=== PATIENT | female | born 1965 | race Caucasian/White ===

== ENCOUNTER 2018-03-19 00:24 | Outpatient (CLI) | payer BC, SELFPAY ==
--- NOTE | 2018-03-19 09:01 | DI.COMBO_ITS ---
SYMPTOM/DIAGNOSIS: 6 MO. F/U, F/U ABNL MAMMO, R92.8, DIAGNOSTIC LEFT MAMMOGRAM AND LEFT BREAST ULTRASOUND: Mammograms were interpreted according to the usual protocol including computer analysis with CAD system, tomosynthesis and C view imaging. Comparison is made with prior examinations. Breast density, Category C. The circumscribed nodule in the retroareolar region of the left breast appears stable. Left breast ultrasound was performed. The hypoechoic ovoid soft tissue mass is again seen and is unchanged in size. It lies at the 3 o'clock position of the left breast. IMPRESSION: No evidence for malignancy. Stable appearance of the left breast nodule. 6 month follow up left mammogram and left breast ultrasound are requested for re-evaluation. Patient will be due for a bilateral mammogram at that time. Category 3. The findings were discussed with the patient on the date of the examination. SA ASSESSMENT OF FINDINGS: Probably benign. Six month follow-up recommended. Category 3. Patient will receive a letter notifying them of these results. Bi-RADS category C. The breasts are heterogeneously dense, which may obscure small masses.
== END 2018-03-19 00:44 ==
PROVIDERS: PCP Family Medicine; Visit Provider Family Medicine
DX: N60.82 Other benign mammary dysplasias of left breast (principal); Z12.31 Encounter for screening mammogram for malignant neoplasm of breast; R92.8 Other abnormal and inconclusive findings on diagnostic imaging of breast
CPT/HCPCS: 76642; 77061; 77065; G0279

== ENCOUNTER 2018-04-30 06:12 | Day surgery (SDC) | payer BC, SELFPAY ==
[2018-04-30] VITALS (8 sets, daily range): BP systolic 113–129; BP diastolic 61–80; PULSE 71–81; RESP 14–18; TEMP 36.6–37.1; O2SAT 94–100
--- NOTE | 2018-04-30 06:30 | W.PM.DSUDISC ---
Discharge Plan Disposition Patient Disposition: HOME Condition: Good Discharge Details Reason For Visit: BILLIARY DYSKINESIA Attending Provider: Jeri Garcia Primary Care Provider: Cecy Rhodes Home Meds and New Rx's Prescriptions: New acetaminophen [Tylenol 8 Hour] 650 mg tablet extended release 650 mg PO Q8H PRN (Reason: fever or pain) Qty: 30 RF: 0 ibuprofen 600 mg tablet 600 mg PO QID PRN (Reason: fever or pain) Qty: 30 RF: 0 oxycodone 5 mg tablet 5 mg PO Q6H PRN (Reason: pain) Qty: 14 RF: 0 Continue multivitamin 1 EACH tablet 1 ea PO DAILY RF: 0 calcium carbonate-vitamin D3 [Caltrate with Vitamin D3] 1 EACH tablet 1 ea PO DAILY RF: 0 omega-3 fatty acids-fish oil [One-Per-Day [place]-3] 1 EACH capsule,delayed release(DR/EC) 1 cap PO DAILY RF: 0 calcipotriene-betamethasone [Taclonex] 60 GM suspension 10 - 20 ml Topical DAILY Qty: 300 RF: 12 triamcinolone acetonide 80 GM ointment 2 gm Topical BID Qty: 80 RF: 3 ketoconazole [Nizoral] 120 ML shampoo 1 julienne Topical DAILY PRNQty: 120 RF: 12 bupropion HCl [Wellbutrin XL] 150 mg tablet extended release 24 hr 150 mg PO QAM Qty: 90 RF: 5 citalopram [Celexa] 20 mg tablet 20 mg PO HS Qty: 90 RF: 5 estradiol [Vagifem] 10 mcg tablet 10 mcg VG 2X Week Qty: 25 RF: 5 naproxen sodium [Aleve] 220 MG capsule 220 mg PO PRN PRNRF: 0 Discharge Instructions Instructions: Laparoscopic Cholecystectomy (DC) Additional Instructions: Follow up: 05/15 at 9:30 Pain Medication: Ibuprofen 600 mg every 6 hours as needed Tylenol 650 mg every 6 hours as needed Oxycodon 5 mg every 6 hours as needed for severe pain Miralax or Colace for constipation Other: May shower tomorrow Do not soak the incisions for 1 week May use ice for bruising and swelling Activity: No lifting, pulling or pushing >20 lb x 2 weeks Diet: Low fat 1. Because there will be medication in your system for the next 24 hours, you may feel a little sleepy. Your coordination will be affected. Therefore: a. Do not drive or operate dangerous equipment for 24 hours. b. Do not drink alcohol beverages for 24 hours (not even beer). c. Plan to go home and rest for the day. 2. Generally the only restriction on your activity is no lifting, pulling or pushing more then 20 lb for 4 weeks. You may feel fatigued for 2-4 weeks. 3 After you arrive home you may have a light meal and return to a normal diet as you can tolerate it without feeling sick to your stomach. 4. After surgery, you may feel pain or discomfort. Take the medications as prescribed. 5. If there are any questions regarding the findings of your procedure, please feel free to contact your doctor. 6. If you are unable to contact your doctor with a problem, contact the hospital at [phone]. 7. Continue all your regular medications unless directed otherwise. 8. You are being prescribed a Narcotic pain medication. Narcotic pain medications have an addiction potential for everyone. It is important that you take the medication as prescribed There is a limit on how many tablets we can prescribed, this has been decided by the state Please keep the medications in a secure place and do not let anyone know you have them at home If you have medication left over please discard them by crushing them in a little water and mixing in used coffee grounds or cat litter and putting in the trash. I understand the above instructions and have no questions. Signature of Patient or Responsible Adult Escort Date/Time Name of Responsible Adult Escort Signature of Nurse Date/Time Stand Alone Forms: Skye Arteaga (DSU) Referrals: Jeri Garcia MD [ [facility] STAFF PHYSICIAN] - 05/15/18 9:30 am Activity:: No lifting >20 lb x 2 weeks Diet:: low fat x 2 weeks Discharge Orders Discharge Orders: Discharge Order (Routine); Ordered 04/30/18 Ordered By: Jeri Garcia DS: Diagnosis Discharge Diagnosis (1) S/P laparoscopic cholecystectomy: Status: Acute (2) Biliary dyskinesia: Status: Acute
[2018-04-30] MEDS: Lactated Ringers 1,000 ML 80 ML IV ×2 (06:55→08:43)
[2018-04-30] MEDS: AMPICILLIN/SULBACTAM 3 GM in Normal Saline 100 ML IVPB (07:25)
[2018-04-30] MEDS: Bupivacaine LIPOSOME/PF 133 MG/10 ML VIAL IJ (07:35)
--- NOTE | 2018-04-30 08:17 | GB_PTH ---
PATIENT: Monse Salazar LOC: [facility] U#:[id number] AGE/SX: 53/F ROOM: RE04/30/[address]: Jeri Garcia MD : 1965 BED: DIS: 04/30/2018 SPEC #: [id number] RECD: 04/30/18 12:40 STATUS: MIR REQ #: [id number] SUE: 04/30/18 08:[address]: Jeri Garcia DEPT: Surgical Specimen RECD BY: Shala Del Castillo ENTERED: 04/30/18 12:41 SP TYPE: GB OTHR DR: Cecy Rhodes MD, DC Tissues: 1 - GALLBLADDER Procedures: GROSS AND MICRO LEVEL 3 Comments: [id number]
[2018-04-30] MEDS: Lidocaine 1% Pres-Free 5 ML VIAL (08:29)
--- NOTE | 2018-04-30 09:33 | ROE_ITS ---
REPORT OF OPERATIVE PROCEDURE DATE OF PROCEDURE April 30, 2018 PREOPERATIVE DIAGNOSIS Biliary dyskinesia. POSTOPERATIVE DIAGNOSIS Biliary dyskinesia. PROCEDURE Laparoscopic cholecystectomy. ANESTHESIA General endotracheal anesthesia and a regional nerve block. ANESTHESIA PROVIDER Serjio Capellan C.R.N.A. SURGEON Sylvia Garcia M.D. PREPARATION SUPERVISOR [employer]ING JOSE JUAN Jama SPECIMEN Gallbladder. BLOOD LOSS Less than 50 cc COMPLICATIONS No immediate complications. INDICATIONS Ms. Salazar is a pleasant 53-year-old female, who has been having intermittent right upper quadrant pain . An ultrasound was normal, but a HIDA scan showed decreased ejection fraction. The risks, benefits a nd complications of the procedure were reviewed with her and she wished to proceed. No guarantees wer e given or implied. DESCRIPTION OF PROCEDURES After informed consent was obtained, the patient was taken to the Operating Room, placed in the supin e position. Monitors and SCDs were applied. The patient was then placed under general anesthesia an d intubated. She was then placed in the left decubitus position for the regional nerve block, which w as done by Anesthesia, please see separate report. Once that was done, the patient was placed back on to her back and a belt was placed over her lap. Her abdomen was then prepped and draped in a sterile surgical fashion. A time-out was done. The patient's name, date of , procedure, site and type, a llergies to medications, DVT prophylaxes and antibiotics given were all reviewed. Next, 1% lidocaine was injected just above the umbilicus. A small incision was made. Towel clamps wer e applied to the skin on either side of the incision. Using direct visualization, a 5-mm port was ken kaleb without difficulty. The abdomen was insufflated and the camera was placed. The mesentery and ledy l under the port was inspected. No injuries were identified. Three more ports were then placed, one i n the subxiphoid area and two in the right upper quadrant. The gallbladder was identified and grasped . The gallbladder was tented, it was pushed towards the right shoulder, allowing me to visualize the neck of the gallbladder. This was grasped and pulled towards the right, opening up the triangle Calot . [place] dissector was then used to dissect the cystic duct. This was dissected 360 degrees. Once d issected, I was able to see the liver behind it, I could clearly see the duct going into the gallblad marcio. Three clips were placed, one proximal and two distal. The cystic duct was cut. The cystic artery was then identified, running medial to the duct and this was dissected, again 360 degrees and then t hree clips were placed, on proximal and two distal, and the artery was cut. The gallbladder was then removed from the liver bed using cautery. Once removed, it was placed into an EndoCatch bag and pulle d through the 11-mm port site without difficulty. The port was placed back and the liver bed was insp ected. A little bit of bleeding was noted from the liver bed, this was cauterized. A Ray-Blake was then placed into the abdomen and the liver bed was blotted. No more bleeding was noted. The area was irri gated and the fluid was suctioned. The Ray-Blake was removed. More irrigation was done and the fluid wa s suctioned out. At the end, the irrigation fluid was clear. Once all the fluid was removed, 20 cc o f lidocaine were injected above the liver bed to help with postoperative shoulder pain. The two right upper quadrant ports and the 11-mm port were removed under direct visualization. No bleeding was not ed from the fascia. Lastly, the umbilical port was removed. The abdomen was deflated. Some bleeding was noted from the skin edges of the incisions and this was cauterized. The dermis was closed with #4 -0 Vicryl. The skin was cleaned and dried and Skin Affix was applied. The patient was woken up, extub ated and taken back to Recovery in stable condition. Sponge, instrument and needle counts were correct at the end of the case x2.
== END 2018-04-30 11:25 | disposition home or self-care (01) ==
PROVIDERS: PCP Family Medicine; Visit Provider Surgery
PROC: 0FT44ZZ Resection of Gallbladder, Percutaneous Endoscopic Approach (ICD-10-PCS; CPT 47562; principal; 2018-04-30 07:30)
DX: K81.1 Chronic cholecystitis (principal); G47.33 Obstructive sleep apnea (adult) (pediatric)
CPT/HCPCS: 47562; 76942; 88304; J0131; J0295; J1100; J1885; J2250; J2405; J3010

== ENCOUNTER 2018-09-01 17:09 | Outpatient (REF) | payer BC, SELFPAY ==
--- NOTE | 2018-09-01 16:00 | PAPFT_PTH ---
PATIENT: Monse Salazar LOC: N U#:[id number] AGE/SX: 53/F ROOM: RE09/01/[address]: Cecy Rhodes MD, DC : 1965 BED: DIS: 09/01/2018 SPEC #: [id number] RECD: 09/02/18 13:07 STATUS: MIR [place] #: [id number] SUE: 09/01/18 16:[address]: Cecy Rhodes DEPT: [facility] Cytology RECD BY: Shala Del Castillo Tissues: 1 - CX/ENDOCX FOR PAP SMEARS Procedures: PAP THIN PREP/UVM Screening HPV DNA PROBE Comments: [id number]
== END 2018-09-01 17:29 ==
LOC: LBN 17:09
PROVIDERS: PCP Family Medicine; Visit Provider Family Medicine
DX: Z12.4 Encounter for screening for malignant neoplasm of cervix (principal); Z11.51 Encounter for screening for human papillomavirus (HPV)
CPT/HCPCS: 88142; 87624

== ENCOUNTER 2018-09-23 00:36 | Outpatient (CLI) | payer BC, SELFPAY ==
--- NOTE | 2018-09-23 16:00 | DI.MAMMO_ITS ---
SYMPTOMS/DIAGNOSIS: SCREENING, Z12.31 MAMMOGRAMS: Mammograms were interpreted according to the usual protocol including computer analysis with CAD system, tomosynthesis and C view imaging. The breasts are heterogeneously dense. No dominant mass or clumped microcalcification is identified in either breast. Well-circumscribed nodular radiodensity in the central portion of the left breast on CC view is unchanged from previous examination of August 2017. No new mass or clumped microcalcification identified in either breast. CONCLUSION: No specific evidence of malignancy at this time. Routine screening examinations are suggested at yearly intervals in this age group according to the ACS/ACR guidelines. Category 1, breast density category C. SA ASSESSMENT OF FINDINGS: Negative. Category 1. Patient will receive a letter notifying them of these results. Bi-RADS category C. The breasts are heterogeneously dense, which may obscure small masses.
== END 2018-09-23 00:56 ==
PROVIDERS: PCP Family Medicine; Visit Provider Family Medicine
CPT/HCPCS: 77063; 77067

== ENCOUNTER 2018-09-29 12:12 | Outpatient (REF) | payer BC, SELFPAY ==
--- NOTE | 2018-09-29 11:20 | SKI_PTH ---
PATIENT: Monse Salazar LOC: N U#:[id number] AGE/SX: 53/F ROOM: RE09/29/[address]: Graciela Castanon MD : 1965 BED: DIS: 09/29/2018 SPEC #: [id number] RECD: 09/29/18 13:04 STATUS: MIR REMaty #: [id number] SUE: 09/29/18 11:[address]: Graciela Castanon DEPT: Surgical Specimen RECD BY: Shala Del Castillo ENTERED: 09/29/18 13:04 SP TYPE: SLOANE GONZALEZ DR: Cecy Rhodes MD, DC Tissues: 1 - SKIN BIOPSY(SHAVE/PUNCH) 2 - VULVA BIOPSY Procedures: GROSS AND MICRO LEVEL 4 SKIN LEVEL 4 Comments: [id number]
== END 2018-09-29 12:32 ==
LOC: LBN 12:12
PROVIDERS: PCP Family Medicine; Visit Provider Obstetrics & Gynecology
DX: N76.2 Acute vulvitis (principal); D23.72 Other benign neoplasm of skin of left lower limb, including hip
CPT/HCPCS: 88305; 88304

== ENCOUNTER 2021-01-23 01:50 | Outpatient (CLI) | payer BC, SELFPAY ==
--- NOTE | 2021-01-23 08:15 | DI.MAMMO_ITS ---
Exam(s) MAMMO SCREENING EXAM: MAMMO SCREENING CLINICAL HISTORY: screening, Z12.39 TECHNIQUE: Mammograms were interpreted according to the usual protocol including computer analysis w [employer] CAD system, tomosynthesis and C-view imaging. COMPARISON: 2014 through 2018 FINDINGS: The breasts are composed of heterogeneously dense fibroglandular densities, Breast Density category C . No suspicious masses or suspicious microcalcifications are seen. There is a stable circumscribed nod ule centrally in the left breast. No skin thickening or abnormal axillary lymph nodes are seen. There has been no significant change from prior exams. IMPRESSION: BI-RADS Cat 2 - Benign Findings Yearly screening mammography is recommended. Breast Density Category C, heterogeneously Dense. The mammogram demonstrates the patient's breast tissue is dense. Dense breast tissue is very common a nd is not abnormal but dense breast tissue can make it harder to find cancer on a mammogram. Also, de nse breast tissue may increase breast cancer risk. This information about the result of the mammogram report was provided to the patient to raise their awareness. Use this report when you speak with the patient about their risks for breast cancer, which includes their family history. At that time, you may recommend additional screening tests (Ultrasound or MRI) as they might be useful based on their r isk. A negative radiographic report should not delay biopsy if a dominant or clinically suspicious mass is present. Up to ten percent of cancers are not identified on mammography. A negative report may reinforce clinical impression. Adenosis and dense breasts may obscure an underlying neoplasm. False positive reports average 6 to 10%.
== END 2021-01-23 02:10 ==
PROVIDERS: PCP Family Medicine; Visit Provider Family Medicine
DX: Z12.31 Encounter for screening mammogram for malignant neoplasm of breast (principal)
CPT/HCPCS: 77063; 77067

== ENCOUNTER 2021-06-11 04:06 | Outpatient (CLI) | payer BC, SELFPAY ==
[2021-06-11 08:55] LABS: ALT 22 U/L (14-59); AST 14 U/L (15-37); Albumin 3.8 g/dL (3.4-5.0); Alkaline Phosphatase 80 U/L (46-116); Anion Gap 6.6 mmol/L (3-11); BUN 17 mg/dL (7-18); Bilirubin, Total 0.6 mg/dL (0.2-1.0); CO2 30.4 mmol/L (21.0-32.0); CREATININE 1.2 mg/dL (0.55-1.02); Calcium 8.8 mg/dL (8.5-10.1); Calculated LDL 199 mg/dL (<100); Chloride 103 mmol/L (98-107); Cholesterol 299 mg/dL (<200); Estimated GFR 46.14 (mL/min/1.73m2); Glucose 104 mg/dL (74-106); HDL Cholesterol 87 mg/dL (40-60); Potassium 4.2 mmol/L (3.5-5.1); Sodium 140 mmol/L (136-145); Triglyceride 65 mg/dL (<150)
== END 2021-06-11 04:07 | disposition home or self-care (01) ==
LOC: LBO 04:07
PROVIDERS: Family Medicine; PCP Family Medicine; Visit Provider Family Medicine
DX: I10 Essential (primary) hypertension (principal); Z13.6 Encounter for screening for cardiovascular disorders
CPT/HCPCS: 36415; 80053; 80061

== ENCOUNTER 2021-11-14 09:10 | Outpatient (CLI) | payer OTHER, SELFPAY ==
--- NOTE | 2021-11-14 08:15 | DI.RAD_ITS ---
Exam(s) XR KNEE RT 3V AP,LAT,JES EXAM: XR KNEE RT 3V AP,LAT,JES CLINICAL HISTORY: right knee pain TECHNIQUE: COMPARISON: No exams were available for comparison FINDINGS: Three views were obtained. There is a probable small knee joint effusion. Cartilaginous joint space s appear fairly well maintained except for perhaps slight narrowing of medial tibiofemoral cartilagin ous joint space. Minimal marginal osteophytes of the patella noted. No other significant bony abnor mality seen. IMPRESSION: Mild degenerative changes as described above. RADIATION DOSE DELIVERED: Total DLP
== END 2021-11-14 09:11 | disposition home or self-care (01) ==
LOC: DIORS 09:10
PROVIDERS: PCP Family Medicine; Referring Provider Family Medicine; Visit Provider Student in an Organized Health Care Education/Training Program
DX: M25.561 Pain in right knee (principal); M25.461 Effusion, right knee; M25.761 Osteophyte, right knee
CPT/HCPCS: 73562

== ENCOUNTER → 2021-12-10 02:41 | Outpatient (CLI) | payer OTHER, SELFPAY ==
--- NOTE | 2021-12-10 07:00 | DI.MRI_ITS ---
Exam(s) MR LOWER JOINT RT WO EXAM: MR LOWER JOINT RT WO CLINICAL HISTORY: R KNEE SKI INJURY,INTERNAL DERANGEMENT,M23.91 TECHNIQUE: Multiplanar multisequence MRI of the right knee was performed. COMPARISON: Plain films of 11/14/2021 were reviewed FINDINGS: EFFUSION: There is a moderate size joint effusion. There is also a Toro cyst in the popliteal fossa which measures approximately 3.5 cm length by 1.2 cm AP by 1.1 cm wide. Inferiorly it appears ruptu red with some fluid tracking down the medial gastrocnemius surface. There is also subcutaneous edema anterior to the knee without a distinct fluid collection. This is m ostly anterior to the patellar ligament (which is intact). MARROW:There is bone contusion in the medial tibial plateau and overlying medial condyle. No bone co ntusion in the lateral compartment nor in the fibular head and neck nor in the patella. There is a s mall degenerative subarticular cyst in the mid posterior aspect of the tibial plateau just anterior t o the tibial PCL insertion site. This measures 4 x 4 millimeters. There are no ominous osseous lesi ons. PATELLOFEMORAL COMPARTMENT: The quadriceps tendon is intact. The patellar ligament is intact. There is signal abnormality in the anterior Hoffa fat pad. There is significant thinning of the retropate llar cartilage over the medial facet; less so over the lateral facet.No intraosseous signal to sugges t recent patellar dislocation. CRUCIATE LIGAMENTS: The anterior cruciate ligament is intact.The posterior cruciate ligament is intac t. MEDIAL COMPARTMENT/MEDIAL MENISCUS: There is a tear of the inner aspect of the posterior horn of the medial meniscus at the level of the root. There is mild extrusion the meniscus but no gutter descent . The anterior horn of the medial meniscus appears intact.. There is some generalized thinning of cartilage over the medial condyle. There is a focal area of morris barticular signal abnormality over the anterior weight-bearing surface of the medial femoral condyle measuring 5 x 3 millimeters. There is no distinct formed osteochondral defect at this level. Margin al osteophytes noted off the inner and outer aspect of the medial femoral condyle. Also subarticular edema on both sides as described above-mild. No evidence of tibial plateau fracture. MEDIAL COLLATERAL LIGAMENT: Abnormal. There is fluid interposed between the deep and superficial lay ers of the MCL. This fluid measures 2 cm craniocaudal by 1.5 cm AP by 0 point 2 cm wide. LATERAL COMPARTMENT/LATERAL MENISCUS: There is no evidence of lateral meniscal tear.There are no dory dral defects, osteochondral defects, subarticular marrow edema, nor osteophytes evident. ILIOTIBIAL BAND: Intact LATERAL COLLATERAL LIGAMENT COMPLEX: The fibular collateral ligament is intact. The biceps femoris t endon is intact.Popliteus muscle and tendon are intact. IMPRESSION: 1. There is a tear in the posterior horn of the medial meniscus at the level of the root. There is m ild meniscal extrusion.. The anterior horn of the medial meniscus appears intact. Some degenerative cartilage changes noted over the medial femoral condyle, as described above. There is also an area of focal subarticular edema over the anterior weight-bearing surface but no formed osteochondral defe ct at this time. 2. There is abnormal fluid as described above interposed between the deep and superficial layers the medial collateral ligament, consistent with significant injury. However, there does not appear to be full-thickness tear of the MCL. The most superior aspect of the fluid collection at this level appe ars septated. 3. No significant lateral compartment findings. 4. There is significant thinning of the retropatellar cartilage over the medial facet. No osteochond ral defect at this level. 5. There is a moderate size joint effusion and Toro cyst as described above. The Toro's cyst appe ars ruptured as there is fluid tracking down the medial gastrocnemius. DATA REPOSITORY:
== END ==
PROVIDERS: PCP Family Medicine; Visit Provider Student in an Organized Health Care Education/Training Program
DX: M23.91 Unspecified internal derangement of right knee (principal); S83.241A Other tear of medial meniscus, current injury, right knee, initial encounter; M25.461 Effusion, right knee; M71.21 Synovial cyst of popliteal space [Baker], right knee; M94.8X6 Other specified disorders of cartilage, lower leg; M17.11 Unilateral primary osteoarthritis, right knee; R60.0 Localized edema; X58.XXXA Exposure to other specified factors, initial encounter
CPT/HCPCS: 73721

== ENCOUNTER 2022-01-02 01:08 | Outpatient (CLI) | payer BC, SELFPAY ==
--- OUTSIDE RECORDS SUMMARY | 2022-01-02 01:11 | XMS_ITS | Encounter Summary ---
:1965 [place] [address] Care Team Providers Name Role Phone Cecy Rhodes MD Primary Care Provider Reason for Visit Consultation (Routine) - Authorized Specialty Diagnoses / Procedures Referred By Contact Refer red To Contact Dermatology Diagnoses Neoplasm of uncertain behavior of skin Marcus Calzada MD [facility] Dermatology [address] [place] [address] [place] [address] Fax: Referral ID Status Reason Start Expiration Visits Visits Date Date Requested Authorized [id number] Authorized Consult, 04/30/2022 6 6 Test & Treat 1 [facility] PCP Updated and/or Approved Encounter Details Date Type Department Care Team Description 05/14/2021 Office Visit Dermatology at [facility] Beny Peace MD Neoplasm of [facility] unspecified behavior [address] of bone, soft tissue, [place] [address] HEATER and skin (Primary Dx) [phone] RD-DERMATOLOGY [place], [place] [address] Social History Tobacco Use Types Packs/Day Years Used Date Never Smoker Sex Assigned at Date Recorded Not on file documented as of this encounter Progress Notes Blane Peace MD - 05/14/2021 10:20 AM EST Images from the original note were not included. DEPARTMENT OF DERMATOLOGY Medical Dermatology Clinic Note Provider: Blane Peace MD Patient's preferred name Monse Preferred contact method for results [x]Phone []myD-H []Letter Detailed phone message OK? Yes Are there any other people with whom we may discuss your care? Chivo Salazar () Past Medical History Date, location, treatment Melanoma N Dysplastic nevi N SCC N BCC N AKs N UV Exposure & Protection Not discussed Other relevant past medical history Seborrheic dermatitis Family History Details Melanoma N NMSC Father with hx of NMSC requiring Mohs surgery Other relevant family history Eczema Social History Works as a teacher Pre-Procedure Questions Details Allergy to lidocaine, epinephrine, Dermabond, chlorhexidine, or adhesives N Bleeding disorder or blood thinners N Implanted devices (Pacemaker, defibrillator, deep brain stimulator, cochlear implant) N History of Present Illness: Monse Salazar is a 56 y.o. Patient is referred to the clinic at the request of Marcus Calzada for a spot on her right cheek, which has been present for approximately 1 year. It has doubled in size, and it sometimes bleeds. It is itchy. She has tried an OTC topical antibiotic, tea tree oil, and OTC hydrocortisone cream without improvement. Her PCP also treated it with cryotherapy in January 2021, but it did not resolve. She has no additional concerns at this time. Review of Systems: General: Feeling well. Skin: No other skin concerns. Medications: Reviewed in eD-H Allergies: Reviewed in eD-H Skin Examination: Focused skin examination of the face was normal with the exception of the findings below. Assessment/Plan #. Neoplasm of unspecified behavior of skin: DDX: SCC vs. Other - Approximately 5mm, scaly, red, heme-crusted papule on the right cheek with hairpin vessels appreciated on dermoscopy Procedure Shave Biopsy Discussed with patient diagnostic options, including the risks and benefits of observation, empiric treatment, and biopsy, including but not limited to recurrence, cosmesis (scar, dyspigmentation, scarspread,keloid), pain, keloid/hypertrophic scar, bleeding, infection. Patient verbally understands and elects biopsy. -Time Out Performed: Full Name, , and site(s) confirmed with patient -Site was prepped in sterile fashion with Alcohol. Anesthesia with 1% lidocaine + 1:100,0000 epinephrine. Lesion biopsied with shave technique using briana blade. -Hemostasis achieved with Drysol. <1ml blood loss. No complications. Specimen(s): Placed in formalin and sent to Pathology for histologic examination. Post-op care: Vaseline, Pressure Dressing Figure 1 Photo(s) taken and charted with patient's verbal consent. Other: ??? N/A RTC: Pending pathology []Note routed to workers compensation legal secretary []Recall placed in scheduling system []Appointment scheduled at checkout Reviewed and signed by: Blane Peace MD Dermatology [facility] Patient seen and evaluated with staff bolt labeler: Carin Cleary MD Department of Dermatology [facility] Carin Leroy MD - 05/14/2021 10:20 AM EST I directly supervised the resident during this office visit. The resident physician presented the history and physical exam to me. I then saw and examined this patient with the resident. We reviewed the history and pertinent details and I confirmed the physical exam findings. I agree with the details of the history and physical exam as documented in the resident physician's note. Carin Cleary MD Staff Physician [facility] Dermatology Blane Peace MD - 05/14/2021 10:20 AM EST Called patient to inform of biopsy result showing basal cell carcinoma. Patient informed that additional treatment is recommended. Treatment options discussed and patient elects Mohs surgery. Referred to Dr. Bean for Mohs surgery. documented in this encounter Plan of Treatment Not on filedocumented as of this encounter Procedures Procedure Name Priority Date/Time Associated Diagnosis Comme nts SPECIMEN TO Routine 05/14/2021 10:42 AM Neoplasm of Results for this PATHOLOGY EST unspecified behavior procedu re are in of bone, soft the results tissue, and skin section. SURGICAL PATHOLOGY Routine 05/14/2021 10:41 AM Re sults for this REPORT EST procedure are i n the results section. documented in this encounter Results Specimen to Pathology (05/14/2021 10:42 AM EST) Specimen Anatomical Collection Method Collection Time Receive d Time (Source) Location / / Volume Laterality AP Specimen 05/14/2021 10:42 05/14/2021 AM EST 10:42 AM EST Narrative [facility] - 05/14/2021 10:42 AM EST Specimen requisition ordered. ??Separate Pathology report to follow Carin Cleary MD PATHOLOGY/CYTOLOGY ORDERABLE S Performing Organization Address City/State/Z[place] [address] [facility] [address] Surgical Pathology Report (05/14/2021 10:41 AM EST) Component Value Ref Test Analysis Performed At [facility] Range Method Time Signature Surgical [id number] ? Location: [facility] Report The signing pathologist has (i) examined the relevant preparation(s) for the [facility] specimen(s) and (ii) rendered or confirmed the diagnosis(es) . [facility] . ?Surgic al Pathology DIAGNOSIS Right cheek, skin shave biopsy: - Surface of ??basal cell carcinoma with nodular features, t ransected Electronically signed by: ?Johnathon Leiva MD Verified: ??05/18/2021 11:01 ??Dermatopathologist Performed at: ??-[facility] Dept. of Pathology, [place], [place] SPECIMEN(S) SUBMITTED A - Right cheek, skin shave biopsy (1) CLINICAL INFORMATION 5 mm, scaly, he crusted papule on the right cheek X 1 year: SCC vs other SPECIMEN PROCESSING A - Labeled/Fixative: Right cheek, formalin. Quantity/Size: ??Single, 0.5 x 0.4 x 0.2 cm. Tissue Description: Granular, partly crusted pink-nelson papule . Sections/Processing: Inked, bisected and entirely submitted in 1 cassette labeled A1. ??pps Specimen (Source) Anatomical Collection Method Collection Time Re ceived Time Location / / Volume Laterality 05/14/2021 10:41 AM EST Blane Peace MD PATHOLOGY/CYTOLOGY ORDERABLE S Performing Organization Address City/State/ZIP [place] [address] documented in this encounter Visit Diagnoses Diagnosis Neoplasm of unspecified behavior of bone , soft tissue, and skin - Primary documented in this encounter Care Teams Workers Compensation Claims Examiner Relationship Specialty Start Date End Date Cecy Rhodes MD PCP - General Family Medicine 05/06/[address] [place] [address] documented as of this encounter
--- OUTSIDE RECORDS SUMMARY | 2022-01-02 01:11 | XMS_ITS | Encounter Summary ---
:1965 [place] [address] Care Team Providers Name Role Phone Cecy Rhodes MD Primary Care Provider Reason for Visit Reason Comments Skin Lesion Consultation (Routine) - Closed Specialty Diagnoses / Procedures Referred By Contact Refer red To Contact Dermatology Diagnoses seborrheic dermatitis Rika Deutsch, ARCHIVIST ECONOMIC HISTORY [facility] Dermatology [address] [place], [place] [address] [place] [address] Fax: Referral ID Status Reason Start Date Expiration Date Visits V isits Requested Authorized [id number] Closed Consult, 05/01/2016 05/01/2017 1 1 [facility] Encounter Details Date Type Department Care Team Description 05/06/2016 Office Visit Dermatology at [facility] Fransisco León MD AK (actinic keratosis); [facility] Intradermal nevus [address] [place] [address] [facility] [phone] RD-DERMATOLOGY [place], [place] [address] Social History Tobacco Use Types Packs/Day Years Used Date Never Smoker Sex Assigned at Date Recorded Not on file documented as of this encounter Patient Instructions Patient InstructionsWiKallie perez LPN - 05/06/2016 10:30 AM EST Actinic Keratoses You have been diagnosed today with Actinic Keratosis (AK). These dry, scaly patches are considered the earliest stage in the development of skin cancer. In rare cases, an AK can progress to skin cancer. Because of this risk, AKs are usually treated. You were treated today with Liquid Nitrogen. This is the most common treatment for AKs. Liquid nitrogen is extremely cold, and freezes the surface of the skin, causing the lesion to flake off. Treatment with liquid nitrogen can be uncomfortable, but discomfort should subside after a couple of hours. The area treated will look red and irritated, and it may blister up or turn dark, then fall off. This is normal! You do not need any special treatment for the area, but you may find cold compresses and/or a light application of Vaseline soothing. For best results, do not rub or pick at the healing lesion. Expected healing time is 3-4 weeks. Please contact the Dermatology clinic at [phone] if the lesion has not fully resolved after 6 weeks. documented in this encounter Progress Notes Juvenal León MD - 05/06/2016 10:30 AM EST DERMATOLOGY CONSULT NOTE Date of service: 05/06/2016 Monse Salazar : 1965 Provider: Juvenal León MD Chief Complaint Patient presents with ??? Skin Lesion The patient is seen at the request of Rika Deutsch, who instructed the patient to be seen for evaluation of above SKIN HX: History of psoriasis No skin cancer Blistering/severe sun moreno in the past Skyla tanning downing exposure HPI Monse Salazar is a 51 y.o. year old female, new to me and to dermatology. Patient presents to the clinic today for a lesion on the right wrist. She states that the lesion has been there since the beginning of March. She has treated it with OTC cortisone cream, triple antibiotic cream and antifungal cream with no improvement. She went to see her PCP who prescribed mupirocin, she used twice daily for 2 weeks with no improvement. She also has bumps on the lower face, they are asymptomatic and have been there for years, patientstates that they are unsightly and would like to know if they are worrisome and what are her options for removal. MEDS: Current Outpatient Prescriptions Medication Sig Dispense Refill ??? citalopram (CELEXA) 20 mg Tablet Take 20 mg by mouth daily. ??? buPROPion (WELLBUTRIN SR OR ZYBAN) 150 mg Tablet Sustained Release Take 150 mg by mouth 2 times daily. No current facility-administered medications for this visit. ADR: Codeine phosphate ROS General: feeling well Skin: denies other skin complaints MEDICAL HISTORY: There is no problem list on file for this patient. FAMILY HISTORY: Father had squamous cell carcinoma, currently being treated No history of any other skin diseases SOCIAL HISTORY/OCCUPATION: Occupation: teacher middle school Sunscreen: Yes, SPF: 30 EXAM General: NAD, pleasant, cooperative Skin: An examination of the right wrist and face was preformed today. Significant skin findings: A. 2mm hyperkeratotic papule with an inflamed base on the right dorsal wrist B. Left lower cutaneous lip, right chin, right submental: 5mm dome shaped skin colored papules ASSESSMENT/PLAN: A. Actinic keratosis (favored) vs. Inflamed hair follicle - If symptoms do not improve a biopsy may be warranted in the future; she will call if this occurs - Procedure Note: Procedure: Destruction of lesion with cryotherapy. Number: 1 Location: as above Discussed procedure and expectations including risks (including risk of hypopigmentation) and benefits. Verbal consent obtained. Frozen with LN2, 15-30 second thaw time, TWICE. There were no complications; the patient tolerated the procedure well. Post-procedure expectations and wound care were reviewed. B. Intradermal Nevi vs. Angio fibromas - Etiology discussed - Advised the patient to RTC if she notices any changes in shape, size or color - Discussed with patient that treatment/removal would be considered cosmetic, therefore insurance would not cover it and patient would be expected to pay out of pocket, in full, at time of service. - No treatment warranted at this time Follow up: PRN I am documenting this encounter acting as the scribe for and in the presence of Dr. León: KALLIE CUNNINGHAM LPN and Helene Dean Scribe I performed the above scribed service and agree with the accuracy of the documentation in this encounter. Juvenal León MD Speaking Unit Assembler of Dermatology, Department of Surgery [facility] cc: Cecy Rhodes MD documented in this encounter Plan of Treatment Not on filedocumented as of this encounter Visit Diagnoses Diagnosis AK (actinic keratosis) Actinic keratosis Intradermal nevus Benign neoplasm of skin, site unspecifie d documented in this encounter Care Teams Water Treatment Plant Engineer Relationship Specialty Start Date End Date Cecy Rhodes MD PCP - General Family Medicine 05/06/16 [facility] [address] [place] [address] documented as of this encounter
--- OUTSIDE RECORDS SUMMARY | 2022-01-02 01:11 | XMS_ITS | Encounter Summary ---
:1965 Author Organization [facility] [place] [address] Care Team Providers Name Role Phone Cecy Rhodes MD Primary Care Provider Encounter Details Date Type Department Care Team Description [facility]/07[facility] benign [facility]; Maryam PLUNKETT Seborrheic keratosis; [address] [facility] Lentigines; [place] [address] [address] History of basal cell carcinoma (BCC) [phone] [facility]-DERMATOLOGY [place], [place] [address] Social History Tobacco Use Types Packs/Day Years Used Date Never Smoker Sex Assigned at Date Recorded Not on file documented as of this encounter Progress Notes Adam Rogers MD - 08/07/2021 2:00 PM EST Images from the original note were not included. DEPARTMENT OF DERMATOLOGY Medical Dermatology Clinic Provider: Adam Rogers MD Patient's preferred name Monse Preferred contact method for results [x]?Phone []?myD-H []?Letter Detailed phone message OK? Yes Are there any other people with whom we may discuss your care? Chivo Salazar () ?? Past Medical History Date, location, treatment Melanoma N Dysplastic nevi N SCC N BCC Right cheek, BCC, s/p Mohs Jul 2021 AKs N UV Exposure & Protection Not discussed Other relevant past medical history Seborrheic dermatitis Family History Details Melanoma N NMSC Father with hx of NMSC requiring Mohs surgery Other relevant family history Eczema Social History Works as a teacher ?? Pre-Procedure Questions Details Allergy to lidocaine, epinephrine, Dermabond, chlorhexidine, or adhesives N Bleeding disorder or blood thinners N Implanted devices (Pacemaker, defibrillator, deep brain stimulator, cochlear implant) N History of Present Illness: Monse Salazar is a 56 y.o. Patient returns to clinic today for a full skin exam. - No specific lesions that are concerning. No spots that are changing colors, itching, or bleeding. Last visit at Dermatology: 05/14/2021 Last visit with this provider: Visit date not found Medications: Reviewed in eD-H Allergies: Reviewed in eD-H Skin Examination: Full skin examination: Patient asked to undress to their comfort level. Verbalized that the provider's preference is that patient remove all clothing and that the provider will not examine areas patient elects to keep covered. Examination of the scalp, hair, head, face, ears, neck, chest, axillae, abdomen, back, buttocks, genitalia, and upper and lower extremities was normal with the exception of thefindings below. Assessment/Plan Benign nevi - Scattered medium brown macules and papules on the trunk and extremities with reassuring pigment pattern on dermoscopy. - Reassured of benign appearance on exam today. - Reviewed ABCDEs of melanoma and sun protection Seborrheic keratoses - stuck on brown/garcia waxy papules on the trunk and extremities. - Reassured of the benign nature of these lesions. No treatment needed. Solar lentigines - 0.3-0.6cm light-brown evenly pigmented, well-demarcated macules in a photo distributed pattern on the face, trunk and extremities. - Reassured History of BCC - sutures on the right cheek not examined due to bandage from Mohs procedure. - Reviewed importance of sun protection (hats/shade/clothing) and sunscreen recommendations (SPF30, UVA/UVB broad spectrum coverage, reapply every 2 hrs if still outside). - Discussed warning signs of skin cancer, ABCDEs of melanoma. - Recommend daily face lotion spf 15-30 (Cerave AM, Aveeno, Cotz) - Handout provided. Other: ??? Sun protection discussed (protective clothing and SPF30+ broad-spectrum sunscreen) RTC: 12 months for FSE [x]Note routed to personal secretary []Recall placed in scheduling system []Appointment scheduled at checkout Scribe attestation: MERE Dill has performed the documentation for this encounter in the presence of and acting as a scribe for Adam Rogers MD. I performed the above scribed service and agree with the accuracy of the documentation in this encounter. Reviewed and signed by: Adam Rogers MD Dermatology [facility] Patient seen and evaluated with staff finding fastener: Jaida Duong MD Department of Dermatology [facility] Jaida Duong MD - 08/07/2021 2:00 PM EST I directly supervised Dr. Rogers during this office visit. Dr. Rogers presented the history and physical exam to me. I, then, saw and examined this patient with Dr. Rogers . We reviewed the history and pertinent details and I confirmed the physical findings. I agree with the details of the history and physical exam as documented in Dr. Rogers's note. JAIDA DUONG MD Staff Physician documented in this encounter Plan of Treatment Not on filedocumented as of this encounter Visit Diagnoses Diagnosis Multiple benign nevi Benign neoplasm of skin, site unspecifie d Seborrheic keratosis Other seborrheic keratosis Lentigines Other dyschromia History of basal cell carcinoma (BCC) documented in this encounter Care Teams Mat Man Relationship Specialty Start Date End Date Cecy Rhodes MD PCP - General Family Medicine 05/06/[address] [place] [address] [address] [place] [address] documented as of this encounter
--- OUTSIDE RECORDS SUMMARY | 2022-01-02 01:11 | XMS_ITS | Encounter Summary ---
:1965 Author Organization [facility] [place] [address] Care Team Providers Name Role Phone Cecy Rhodes MD Primary Care Provider Reason for Visit Consultation (Routine) - Closed Specialty Diagnoses / Procedures Referred By Contact Refer red To Contact Dermatology Diagnoses Basal cell carcinoma (BCC), unspecified site Blane Peace MD Leboeuf, Matthew R, MD [facility] [place] [address] [place] [address] Fax: Referral ID Status Reason Start Date Expiration Date Visits V isits Requested Authorized [id number] Closed Consult, 05/18/2021 05/18/2022 1 1 Test & Treat Encounter Details Date Type Department Care Team Description 08/07/2021 Procedure visit Dermatology at [facility] Basal cell carcinoma Maryam Chaudhari MD of right cheek [address] [facility] [id number] ANSHU [phone] [facility] [place], [place] [address] Social History Tobacco Use Types Packs/Day Years Used Date Never Smoker Sex Assigned at Date Recorded Not on file documented as of this encounter Last Filed Vital Signs Vital Sign Reading Time Taken Comments Blood Pressure 147/73 08/07/2021 12:57 PM EST Pulse 76 08/07/2021 12:57 PM EST Temperature - - Respiratory Rate - - Oxygen Saturation - - Inhaled Oxygen Concentration - - Weight - - Height - - Body Mass Index - - documented in this encounter Patient Instructions Patient InstructionsCoccIsela silva RN - 08/07/2021 9:27 AM EST Your staff Mohs surgeon today was Jonathan Bean MD, PhD. FLAP CLOSURE Your wound(s) was repaired by a flap closure. A flap closure is rearrangement of skin tissue. A flapis performed when the area has too much tension, or when a simple side to side closure cannot be performed, or when a flap would lead to better cosmetic outcome with a flap. Your flap may be closed with all absorbable sutures, sutures that need to be removed or a combination of both. You will be instructed upon discharge if a suture removal appointment is necessary. Caring for a flap is very similar to caring for regular side to side stitches, except more caution should be used when cleaning the incisions as some flaps can be delicate. Instructions for wound care are below. Please keep in mind these are general guidelines. When in doubt, or if you have more specific questions, please call us. Keep below as a reference while caring for your wound(s): Wound Care Gently remove your initial bandage (after 48 hours from surgery). It is normal to have swelling and bruising. Begin wound care as below. If your initial bandage only stayed on for 24 hours (for example, falls off sooner), this is okay. Resume your wound care and bandaging instructions as below. Change your bandage once a day (and whenever it becomes wet or soaks through) continue for 7 days. For bandage changes: Wash hands with soap and water, or use gloves that you can purchase at a local pharmacy or drug store. Clean the surgical area with cotton-tipped swabs or soft gauze dipped in soapy water (recommend liquid soap in clean room temperature water). Roll the cotton swab over the incision with soapy water, then with plain water, and then gently pat dry. Do not scrub the area with a washcloth. Do not put direct shower water pressure onto your wound. Do not pick off any scabs. It is okay to allow soapy water to run over your wound in the shower, however. If you cannot remove any bloody or crusted areas, you may soak the area with wet gauze first for 15 to 20 minutes to help soften it Pat the area dry with clean gauze or cotton swabs. Do not rub. Use a cotton swab to apply a generous layer of petrolatum over the incision lines and any open-woundareas. Make sure your tube or jar of petrolatum is new or unused to prevent prior contamination from entering your wound. Avoid double dipping. After applying petrolatum, use a clean nonstick gauze or other nonstick dressing, such as Telfa. This may be purchased over the counter at a drug store. Do not use regular gauze as it will stick to your wound and can peel off healing skin with bandage changes. Secure the bandage with paper tape or a bandage. Band-aids are okay, but typically have more adhesive that can irritate the skin compared to paper tape. This can be purchased at a drug store. Continue this wound care daily for 7 days. If any areas of the flap were left open to heal, continueto apply Vaseline until healed. Keep in mind that if you do not want to use a bandage at all due to difficulty, irritation of skin, cost, or inconvenience --- you can certainly avoid bandages altogether. However, it is imperative that you continue with topical petrolatum (plain, fragrance-free). This may need to be applied several times daily if it gets wiped off, washed off, or dries out. Things to purchase for wound care: -Nonstick gauze -A tube or tub of petrolatum jelly (fragrance-free, no dye, not lotion) -paper tape -cotton swabs -gloves (optional) -Dial or other antibacterial liquid soap After Surgery Avoid tobacco, smoking/vapors, and cannabis (marijuana) for at least 3 weeks after your surgery. Smoking impairs healing and leads to worse scarring. Even cutting back on tobacco is helpful if you cannot abstain completely. Limit alcohol intake to one drink per day over the next 3 days. Do not participate in athletic activities for 5-7 days. Athletic activity is a relative term, but this is considered to be anything that could potentially raise your heartrate or blood pressure. Elevating your heart rate and blood pressure can increase risks of swelling, bleeding, wound opening, or lead to worse scarring. Walking at a leisurely pace is fine for most people, but not if you are going walking for the purpose of exercise. Do not lift anything heavier than 10 pounds until your sutures are removed. Some chandelier maker may need to be delayed or delegated such as vacuuming, mowing the lawn, snow shoveling, or caring for young children that need to be carried/lifted. Working any major muscle groups increases your heart rate and can increasing bleeding. Avoid swimming, hot tubs, and direct water pressure for 3 weeks after surgery. You may shower once your initial bandage comes off in 48 hours, however. Avoid antibiotic ointments such as triple antibiotic creams. Stick with your wound care instructions, please. Whenever possible, it is helpful to take photographs with your camera or cell phone of any problems or concerns you see with your wound. We often ask for photos when you call with questions. Starting 2 months following surgery, you can begin firm massage to any areas of firm scar along yourincision to soften the scar and reduce bumpiness. Do this 3 times per day, 3 minutes each time. Do not start massage before 2 months. Your wound will appear completely healed soon after sutures are removed (about 1 week), but incisions can remain bright red for several weeks. Then the scarring and healing process continues under the skin for 6 months up to 2 years. The scar may become less red, less firm, and more subtle during thistime but the rate of improvement varies depending on the person. Most redness, discoloration, bumpiness resolves by 6 months. Keep your follow-up appointments and make sure to continue to have your skin checked, as often as isrecommended by your bone drier operator, for new skin cancers. This is once per year for most patients. Your can expect your scar to be red for several weeks with gradual fading of the redness. The scar will also be raised and lumpy until the dissolvable sutures under the skin get absorbed by your body which can take 3-4 months. The scar will flatten eventually. Occasionally, about 20% of the time, on the face, the stitches under the skin can spit out of the incision to the surface. It can start out looking like a pimple or blemish directly on your incision.Sometimes it can look like a small mini infection so please let us know before you go to another provider for antibiotics. This means that the suture may need to be trimmed or removed when you returnfor your wound check. This typically occurs a few weeks after surgery if it does occur. To optimize your scar, and best cosmetic result, please avoid direct sunlight to your incision for the first 6 months following surgery. UV ray exposure to your incision may cause the redness to last longer, or to cause permanent darkening of your scar. You can avoid sun by covering your incision witha bandage when outdoors, or wearing SPF 30 to 50 sunscreen (broad spectrum). Sometimes after your sutures are removed, your incision may still be healing for 1 more week. Because of this, avoid make-up and sunscreen until approximately 2 weeks after surgery, or sooner if your skin edges look completely sealed. Flaps may sometimes thicken or become firm several weeks after surgery. This is expected in some types of flaps and in certain locations on the face. This is called hypertrophy. If this occurs, at yourwound check, you may need small amounts of medicine injected into your flap to help it soften or thin. This will be determined at your follow-up visit. Flaps and skin surgery in general can lead to mild sensation loss (numbness) in the area of surgery.Massage starting at 8 weeks after surgery can help. Bruising. It is very common to have bruising in swelling in any area of the face, even in areas thatare distant from where we did surgery. This is especially common 24 to 48 hours after surgery when fluid and swelling shifts around in the face. For example, surgery on the forehead, temples, or cheeks often leads to eyelid swelling of both eyes, black eyes, or dark purple bruising. This is expectedin most patients and will gradually resolve. However, if you have severe pain not resolving with over the counter medicine, please call us. You can use ice packs or a bag of frozen peas for 15-20 minutes 3-4 times daily to areas of swelling on the face; use caution not to put the icy item directly on your incision, directly onto your skin as this can damage skin, and avoid prolonged use more than 20 minutes. [address] best way to use ice packs is over the bandage, or a light cloth/paper towel between the ice pack and your skin. You can ice for as many days as needed until swelling has resolved. Antibiotics: If you were given antibiotic prescription, it is important to start them the evening of your surgerydate. Most patients do not need antibiotics after surgery. For pain: Most patients of different ages do not require pain medications. If you do feel soreness or pain, start by taking over the counter extra strength acetaminophen (up to 3000 mg in a 24 hour period). Generally, we like you to avoid NSAIDS (non-steroid anti-inflammatory drugs such as ibuprofen) for the first 48 hours after surgery as this can increase risk of bleeding. However, if acetaminophen is not helping with pain, you can alternate acetaminophen with iburpofen (ibuprofen 400 mg every 4 hours.) Icepacks over your bandage without getting your bandage wet can also help with pain and swelling, for up to 20 minutes at a time (20 minutes off between icing sessions). Frozen peas work well as ice packs. THIS IS AN EXAMPLE OF A PAIN TREATMENT SCHEDULE: 1) You can take 500 mg acetaminophen one tablet by mouth at 6:00pm. This is over the counter. 2) You can take 400 mg of ibuprofen two hours later, at 8:00 pm, or other NSAID such as naproxen, aslong as it does not interact with your other medications and your other doctors have not told you toavoid this. This is over the counter. Check to see how many milligrams (mg) each of your ibuprofen tablets are. Most of the time, ibuprofen comes in 200 mg tablets, so 400 mg would mean taking two of these tablets or capsules. 3) You can take 500 mg of acetaminophen at 10:00 pm. Keep track of your total acetaminophen in a 24 hour period as your maximum should be 3000 mg total in a 24 hour period of this medication. 4) At midnight, you can take another 400 mg of ibuprofen. 5) you can continue on this schedule over the next 2 days, making sure to keep tabs of your total acetaminophen. If you are still in pain after trying the above, please call us. When to call your surgeon: Fever of 100.4 degrees Fahrenheit or higher Bleeding not controlled with direct firm pressure to your wound. Bleeding is most common in the first 48 hours. Pain that is worsening and not relieved by over the counter medications such as acetaminophen (up xw7680 mg in a 24 hour period) Wound reopening after stitching Pus or bad odor from your wound Worsening redness and warmth around your wound If you think your surgery site is infected, please call us before seeking care or antibiotics from other providers Please call us before seeking care in an emergency room or primary care. If you do call, please leave your full name, phone number, date of , date of surgery, and medical record number if you have it. If after hours, please call the paper wrapping machine operator or [phone] and ask for the bone drier operator on-call. If you have any non-urgent questions or concerns, please feel free to call my office or contact me through our patient portal, [employer], at [email or web address] How to contact us during business hours Dermatology at [facility] [address]: Mohs scheduling or Mohs follow-up appointments: [phone] documented in this encounter Progress Notes Jonathan Bean MD - 08/07/2021 8:00 AM EST Images from the original note were not included. Summary of Procedure(s): Site: right cheek Tumor Type: Basal Cell Carcinoma, right cheek Stages to clear tumor: 2 Repair: advancement flap Images: The patient was asked to call with any issues and is aware that I am available 06/01 should questionsarise. Jonathan Bean MD PhD Mohs Micrographic Surgery and Dermatologic Oncology Department of Dermatology Please note that I have reviewed the preoperative checklist from today's nursing visit including relevant social history and medications. I have reviewed the preoperative photos if available and the biopsy report. VITAL SIGNS: BP 147/73 Pulse 76 PHYSICAL EXAMINATION: General: patient is awake, alert, oriented and in no acute distress. Skin: Focused examination of surgical site(s) performed which shows a well healed biopsy site with surrounding poorly defined pearly plaque. PHYSICIAN REVIEW OF REPORTS, RECORDS, IMAGES: 1) The accompanying pathology report(s) associated with aforementioned biopsy slide(s) were/was alsoreviewed. Assessment: Monse Salazar is a 56 y.o. female presenting for: 1. Biopsy-proven basal cell carcinoma, nodular located on the right cheek. Plan: 1. Findings from the biopsy report, today's clinical exam, and other pertinent details were reviewedwith patient today. All questions were answered. 2. Discussed treatment options based on the above findings. We recommended Mohs micrographic surgeryfor treatment of this tumor. Mohs micrographic surgery was indicated due to patient, site and/or tumor characteristics (see operative report for specific indication). 3. We discussed risks, benefits, and alternative treatment options to the Mohs micrographic surgery procedure and pertinent information including but not limited to the following: ?? Risks include bleeding, infection, scar, recurrence, incomplete tumor removal or inability to cure with surgery alone if the tumor features are more aggressive than the initial pathology indicates. Occasionally, additional adjuvant treatments may be recommended. Additional risks include large wound, prolonged wound and healing, pain, swelling, bruising, increased appearance of vessels or worseningerythema of baseline skin; more rarely risks include damage to underlying structures such as nerves,cartilage, or muscle which could lead to temporary or permanent loss of sensation or motor function. ?? Benefit is precise tumor removal ?? If reconstruction is performed, it is specific to the patient and defect. ?? Discussed that the shape, size, depth of the wound is often not known until the tumor is cleared and thus the reconstruction options are sometimes not known until after tumor clearance. Occasionally, referrals to other providers may be recommended for reconstruction based on patient preference and need. ?? Reviewed the pros and cons of common reconstructions used for this tumor type, size, and location, and that reconstruction may lead to change in appearance. ?? Natural history of scar was discussed, including that the scar will continue to mature for 1-2 years. Recommended avoidance of special ointments or scar creams, and avoidance of direct sun exposure to the scar for optimal recovery. ?? Reviewed that there are some aspects of cosmesis that are dependent on patient's characteristics such as age, skin laxity/texture factors, inflammatory skin diseases such as rosacea, prior surgery/radiation, degree of actinic damage, smoking status, strength of the patient's immune system, diligentwound care, medications, and genetics. ?? Having Mohs surgery may lead to physical limitations for optimal healing, such as restricted physical activity and heavy lifting. 4. The nature of sun-induced photo-aging and skin cancers was discussed. Recommended sun avoidance when possible, especially peak hours of sun 10 am to 2pm, protective clothing such as wide-brimmed hats and long-sleeved clothing, and the use of SPF broad-spectrum sunscreen SPF 50 or higher. 5. Signs and symptoms of skin cancer reviewed. Patient to report any new, changing, or symptomatic lesions and follow up with his or her bone drier operator or other skin provider. 6. Discussed avoiding direct sun exposure to scars for best cosmetic result. Note initiated by NORA Schulz RN has performed the documentation for this encounter in the presence of and acting as a scribe for Dr. Bean I performed the above scribed service and agree with the accuracy of the documentation in this encounter. Reviewed and signed by: Jonathan Bean [facility]at[facility] Jonathan Bean MD - 08/07/2021 8:00 AM EST Mohs micrographic Surgery Operative Report Patient name: Monse Salazar : 1965 Date: 08/07/2021 Staff Surgeon: Jonathan Bean MD PhD Nursing/Client Integration Manager(s): Isela Canales RN, Maday Howard [facility], Naheed Davis LPN, Wil [facility] Software Engineer Advisor (s): Ciera Santoyo Pre-operative diagnosis: Basal Cell Carcinoma, nodular Post-operative diagnosis: basal cell carcinoma, nodular and infiltrative Location/Site: right cheek Procedure: Mohs micrographic surgery Indication(s) for Mohs micrographic surgery: Anatomic location for tissue conservation Stages: 2 Preoperative size of tumor: 0.8 x 0.8 cm Stage I The nature and purpose of the procedure, associated risks, possible consequences and complications,and alternative forms of treatment were explained in detail. We reviewed the possible repairs based on the clinical appearance of tumor but discussed that often the repair options may not be known until the tumor has deonna extirpated. Informed consent and permission to take photographs were obtained. The site was confirmed with the patient/authorized in home sales representative/referring physician and/or a photograph form time of biopsy. A pre-operative time-out (procedural pause) was conducted with no unresolved d iscrepancies noted. Local anesthesia was obtained with 1% lidocaine with 1:100,000 epinephrine. The surgical site was prepped and draped in the usual sterile manner. With all visible gross tumor completely excised, the borders of the tumor and 2-3 mm margins were excised as a complete layer. Hemostasis was achieved by electrocoagulation. The excised tissue was oriented and divided into 2 sections, chromacoded, and submitted for frozen sections. The patient tolerated the procedure well and without complications. On microscopic evaluation of the frozen sections, residual tumor was identified as infiltrative basal cell carcinoma on section A1 and A2. Stage II The surgical site was re-anesthetized with 1% lidocaine with 1:100,000 epinephrine, re-prepped and redraped in a sterile manner. The residual tumor was re-excised as a complete layer 2-3mm in thickness using the Mohs map to delineate area of residual tumor. Hemostasis was achieved with electrocoagulat ion. The tissue was oriented and divided into 2 sections, chromacoded, and submitted for frozen sections. The patient tolerated the procedure well and without complications. On microscopic evaluation of the frozen sections, no residual tumor was identified on the deep or outer border of the sections. Depth of excision subcutaneous tissue Final defect size: 1.9 x 1.7 cm Jonathan Bean MD PhD Mohs Micrographic Surgery and Dermatologic Oncology Department of Dermatology [address] [place] [address] Repair Report (Flap) Patient name: Monse Salazar Staff Surgeon: Jonathan Bean MD PhD Pillow Filler(s): same as above regulatory affairs assistant: Lexii Banegas MD, Ammy Titus MD Date: 08/07/2021 Clinical Diagnosis: skin and soft tissue defect status post Mohs micrographic surgery Location/Site: Right cheek Indication: repair of wound with caodaism of anatomy/function Defect size to be repaired: 1.9 x 1.7 cm Procedure: Advancement flap repair (tissue rearrangement) Final flap size: 4 x 3 cm 2 Procedure Details: Due to the size and location of the defect resulting from the complete removal of the tumor, the postoperative risk of hemorrhage, infection, and the possibility of serious deformity from scarring, and in order to restore proper function and prevent loss of function, the defect was closed with an advancement flap. The nature and purpose of the procedure, associated risks, possible consequences, complications andalternative methods of treatment were explained to the patient in detail. An informed consent was obtained. Local anesthesia was obtained with a solution of 1-% lidocaine with 1:100,000 epinephrine. The surgical site was prepped and draped in the usual sterile manner. Any beveled edges of the defect were repaired with a scalpel blade. The flap was created by making incisions along the right lateral cheek and tear trough. The flap andthe wound edges were undermined, and hemostasis was obtained with electrocoagulation. The flap was advanced onto the defect. The skin edges were closed using 4-0 Monocryl dermal/subcutaneous sutures and 6-0 Prolene skin sutures. Final flap size: 4 x 3 cm2. Estimated blood loss: Minimal. Complications:None. Wound care: Routine. Follow up for suture removal in 7 days. Scheduled upon exiting today. The patient was discharged in good condition. Total local anesthesia with 1% lidocaine with 1:100,000 epinephrine used: 8.5cc Total local with 0.25% bupivacaine used: 3cc Jonathan Bean MD PhD Mohs Micrographic Surgery and Dermatologic Oncology Department of Dermatology [address] [place] [address] Note initiated by Isela Canales RN. Isela Canales RN has performed the documentation for this encounter in the presence of and acting as a scribe for Dr. Bean I performed the above scribed service and agree with the accuracy of the documentation in this encounter. Reviewed and signed by: Jonathan Bean [facility]ermat[facility] documented in this encounter Plan of Treatment Not on filedocumented as of this encounter Visit Diagnoses Diagnosis Basal cell carcinoma of right cheek Basal cell carcinoma of skin of other an d unspecified parts of face documented in this encounter Care Teams Head Greenskeeper Relationship Specialty Start Date End Date Cecy Rhodes MD PCP - General Family Medicine 05/06/[address] [place] [address] documented as of this encounter
--- OUTSIDE RECORDS SUMMARY | 2022-01-02 01:11 | XMS_ITS | Encounter Summary ---
:1965 Author Organization [facility] [place] [address] Care Team Providers Name Role Phone Cecy Rhodes MD Primary Care Provider Reason for Referral Consultation (Routine) - Closed Specialty Diagnoses / Procedures Referred By Contact Refer red To Contact Dermatology Diagnoses Basal cell carcinoma (BCC), unspecified site Blane Peace MD Leboeuf, Matthew R, MD [facility] DR [facility] Y [facility] [place] [address] [place] [address] Fax: Referral ID Status Reason Start Date Expiration Date Visits V isits Requested Authorized [id number] Closed Consult, 05/18/2021 05/18/2022 1 1 Test & Treat Encounter Details Date Type Department Care Team Description 05/18/2021 Orders Only Dermatology at Beny Mejía MD Basal cell carcinoma [address] [facility] (BCC), unspecified [address] moises (Primary Dx) [place] [address] [address] [phone] [address]-DERMATOLOGY [place], [place] [address] Social History Tobacco Use Types Packs/Day Years Used Date Never Smoker Sex Assigned at Date Recorded Not on file documented as of this encounter Plan of Treatment Scheduled Referrals Name Type Priority Associated Diagnoses Order S chedule Referral to Outpatient Referral Routine Basal Cell Carcinoma Ordered: Dermatology (Bcc), Unspecified 1 Site documented as of this encounter Visit Diagnoses Diagnosis Basal cell carcinoma (BCC), unspecified site - Primary documented in this encounter Care Teams Odd Job Worker Relationship Specialty Start Date End Date Cecy Rhodes MD PCP - General Family Medicine 05/06/[address] [place] [address] documented as of this encounter
--- OUTSIDE RECORDS SUMMARY | 2022-01-02 01:11 | XMS_ITS | Encounter Summary ---
:1965 Author Organization [facility] [place] [address] Care Team Providers Name Role Phone Cecy Rhodes MD Primary Care Provider Encounter Details Date Type Department Care Team Description 08/14/2021 Office Visit Dermatology at Jonathan Valderrama sit for suture Maryam Chaudhari MD removal [address] [place] [address] [phone] [facility]-DERMATOLOGY [place], [place] [address] Social History Tobacco Use Types Packs/Day Years Used Date Never Smoker Sex Assigned at Date Recorded Not on file documented as of this encounter Progress Notes Jonathan Bean MD - 08/14/2021 2:15 PM EST Images from the original note were not included. Patient returns today for suture removal, healing well, no evidence of infection. Follow up as needed. Jonathan Bean MD PhD Mohs Micrographic Surgery and Dermatologic Oncology Department of Dermatology documented in this encounter Plan of Treatment Not on filedocumented as of this encounter Visit Diagnoses Diagnosis Visit for suture removal Encounter for removal of sutures documented in this encounter Care Teams Legal Aid Relationship Specialty Start Date End Date Cecy Rhodes MD PCP - General Family Medicine 05/06/[address] [place] [address] documented as of this encounter
--- OUTSIDE RECORDS SUMMARY | 2022-01-02 01:11 | XMS_ITS | Encounter Summary ---
:1965 Author Organization [place] [place] [address] Care Team Providers Name Role Phone Cecy Rhodes MD Primary Care Provider Encounter Details Date Type Department Care Team Description 07/23/2021 Telephone Dermatology at [facility] Dylon Thomas [facility] [address] [place] [address] Social History Tobacco Use Types Packs/Day Years Used Date Never Smoker Sex Assigned at Date Recorded Not on file documented as of this encounter Miscellaneous Notes Telephone Encounter - Dylon Thomas CMA - 07/23/2021 4:15 PM EST Mohs consultation and preoperative note (H&P) Patient Name: Monse Salazar Age: 56 y.o. Date of : 1965 Today's Date: 07/23/2021 REFERRING PROVIDER: No ref. provider found CC: Mohs micrographic surgery for treatment of a cutaneous tumor HPI: Monse Salazar is a 56 y.o. female presenting for biopsy-proven basal cell carcinoma with nodular features, location on the right cheek. The dermatologic preoperative information sheet was reviewed with pertinent positive and negative as below. DERMATOLOGIC PRE-OPERATIVE EVALUATION AND REVIEW OF SYSTEMS History of Mohs surgery? no If yes, have you ever had Mohs surgery with Dr. Bean? no Pacemaker/Defibrillator? no Joint replacement or other implantable devices (e.g. Cochlear implant)? If yes then when? no Do you take a blood thinner? No History of organ transplant? no History of artificial valve or stroke? no History of liver disease or bleeding disorder? no Do you have any medical problems that may affect your upcoming surgery? no Do you have any concerns regarding your upcoming surgery? no We ask patients to discontinue Fish oil/Multivitamin/Vit E/?? supplements and natural medicines not prescribed by a physician 1 week prior to surgery. SOCIAL HISTORY: Makes Own Decisions Yes Hearing aid or other devices: No Relevant travel history or future plans: No Tobacco use (amount per day, type of tobacco): no Do you have any physical limitations that may affect your surgery?: no ALLERGIES: Allergies reviewed MEDICATIONS: Medications reviewed documented in this encounter Plan of Treatment Not on filedocumented as of this encounter Visit Diagnoses Not on filedocumented in this encounter Care Teams Terminal Operator Relationship Specialty Start Date End Date Cecy Rhodes MD PCP - General Family Medicine 05/06/[address] [place] [address] documented as of this encounter
--- OUTSIDE RECORDS SUMMARY | 2022-01-02 01:11 | XMS_ITS | Encounter Summary ---
:1965 Author Organization [facility] [place] [address] Care Team Providers Name Role Phone Cecy Rhodes MD Primary Care Provider Reason for Visit Reason Comments Basal Cell Carcinoma Encounter Details Date Type Department Care Team Description 08/07/2021 Clinical Support Dermatology at [facility] Steph Smith Basal cell carcinoma Maryam Chaudhari MD of right cheek [address] [facility] [address] [facility] [phone] [place] [address] Social History Tobacco Use Types Packs/Day Years Used Date Never Smoker Sex Assigned at Date Recorded Not on file documented as of this encounter Progress Notes Isela Canales RN - 08/07/2021 7:45 AM EST Mohs consultation and preoperative note (H&P) Patient Name: Monse Salazar Age: 56 y.o. Date of : 1965 Today's Date: 08/07/2021 REFERRING PROVIDER: Blane Peace MD CC: Mohs micrographic surgery for treatment of [...] you ever had Mohs surgery with Dr. Smith? no Pacemaker/Defibrillator? no Joint replacement or other [...] any concerns regarding your upcoming surgery? no SOCIAL HISTORY: Makes Own Decisions Yes Hearing [...] face documented in this encounter Care Teams Superintendent Greens Relationship Specialty Start Date End Date Cecy Rhodes MD PCP - General Family Medicine 05/06/16 [address] [place] [address] documented as of this encounter
--- OUTSIDE RECORDS SUMMARY | 2022-01-02 01:12 | XMS_ITS | Encounter Summary ---
:1965 Author Organization [facility] Address [address] [place] [address] Care Team Providers Name Role Phone Unavailable Primary Care Provider Unavailable Encounter Details Date Type Department Care Team Description 08/08/2004 Results Only [facility] - Tali David MD Maple conversion [address] [place] [address] [place] [address] Social History Tobacco Use Types Packs/Day Years Used Date Never Assessed Sex Assigned at Date Recorded Not on file documented as of this encounter Plan of Treatment Not on filedocumented as of this encounter Procedures Procedure Name Priority Date/Time Associated Diagnosis Comme nts CYTOPATHOLOGY Routine 08/08/2004 0:00 EST Results for this procedure are i n the results section . documented in this encounter Results CYTOPATHOLOGY (08/08/2004 0:00 EST) Pathology Report: CYTOPATHOLOGY REPORT [facility] Reports generated via electronic interface contain laurita ginal data; however they are lacking the format of the original re port. Caution should be taken when reading/interpreting unfo rmatted reports. Name: ? HENNA COX ? Accession #: ? [id number] : ? 1965 (Age: 39) ??F ?Collect Date: ? 07/18 Location: ? [facility] ? Receive Date : ? 08/10/2004 Provider: ?JULIO DAVID MD Copy to: ? Specimen/Source: ?ThinPrep Pap Test, Cervix/ Endocervix Last Menstrual Period: ? 2000 Hormonal/Contraceptive Status: ? Yes Other: ? HPVA - HPV testing requested if ASC-US on the current ThinPrep Pap test. ? SPECIMEN ADEQUACY ? Satisfactory for Evaluation - transformation zone component present GENERAL CATEGORIZATION ? Negative for Intraepithelial Lesion or Malignan cy ? Document reviewed and electronically signed by: ? Lizett Haley, TL(ASCP) ? Report Date: ??08/14/2004 09:33 End of Report Specimen Performing Organization Address City/State/ZIP Code Phon e Number [facility] [address] [place] [address] SERVICES [facility] [address] [place] [address] documented in this encounter Visit Diagnoses Not on filedocumented in this encounter
--- OUTSIDE RECORDS SUMMARY | 2022-01-02 01:12 | XMS_ITS | Encounter Summary ---
:1965 Author Organization [facility] Address [address] [place] [address] Care Team Providers Name Role Phone Unavailable Primary Care Provider Unavailable Encounter Details Date Type Department Care Team Description 02/18/2002 Results Only [facility] - Lizett Murillo CNM [facility] [address] [place] [address] Social History Tobacco Use Types Packs/Day Years Used Date Never Assessed Sex Assigned at Date Recorded Not on file documented as of this encounter Plan of Treatment Not on filedocumented as of this encounter Procedures Procedure Name Priority Date/Time Associated Diagnosis Comme nts CYTOPATHOLOGY Routine 02/18/2002 0:00 EDT Results for this procedure are i n the results section . documented in this encounter Results CYTOPATHOLOGY (02/18/2002 0:00 EDT) Pathology Report: CYTOPATHOLOGY REPORT [facility] Reports generated via electronic interface contain laurita ginal data; however they are lacking the format of the original re port. Caution should be taken when reading/interpreting unfo rmatted reports. Name: ? HENNA COX ? Accession #: ? [id number] : ? 1965 (Age: 36) ??F ?Collect Date: ? 10/2001 Location: ? [facility] ? Receive Date : ? 02/19/2002 Provider: ?LIZETT RECIO CNM Copy to: ? Specimen/Source: ?ThinPrep Pap Test, Cervix/ Endocervix Last Menstrual Period: ? 03/17/01 Menstrual/ Status: ? Post ? SPECIMEN ADEQUACY ? Satisfactory for Evaluation - transformation zone component present GENERAL CATEGORIZATION ? Negative for Intraepithelial Lesion or Malignan cy ? Document reviewed and electronically signed by: ? July Ventura, LORENZA(ASCP)(IAC) ? Report Date: ??02/22/2002 18:07 End of Report Specimen Performing Organization Address City/State/ZIP Code Phon e Number [facility] [address] [place] [address] SERVICES [facility] [address] [place] [address] documented in this encounter Visit Diagnoses Not on filedocumented in this encounter
--- OUTSIDE RECORDS SUMMARY | 2022-01-02 01:12 | XMS_ITS | Encounter Summary ---
:1965 Author Organization [facility] Address [address] [place] [address] Care Team Providers Name Role Phone Unavailable Primary Care Provider Unavailable Encounter Details Date Type Department Care Team Description 05/09/2008 Before [facility] - Cecy Rhodes, Converted Visit Monet flowers MD (Monet) [address] [facility] [address] [place] [address] [place] [id number] (Wo rk) Social History Tobacco Use Types Packs/Day Years Used Date Never Assessed Sex Assigned at Date Recorded Not on file documented as of this encounter Plan of Treatment Not on filedocumented as of this encounter Procedures Procedure Name Priority Date/Time Associated Comments Diagnosis HPV DETECTION, HIGH Routine 05/09/2008 14:16 Resu lts for this RISK TYPES EST procedure are i n the results section. CYTOPATHOLOGY Routine 05/09/2008 0:00 Results for this EST procedure are i n the results section. documented in this encounter Results HUMAN PAPILLOMA VIRUS DNA TEST (05/09/2008 14:16 EST) Specimen Description Cervix, ThinPrep [facility] vial Result Negative for HPV [facility] types 16, 18, 31, 33, 35, 39, 45, 51, 52, 56, 58, 59, and 68. Report Status Final [facility] 05/19/2008 Specimen Performing Organization Address City/State/ZIP Code Phon e Number [facility] [address] [place] [address] SERVICES [facility] [address] [place] [address] CYTOPATHOLOGY (05/09/2008 0:00 EST) Pathology Report: CYTOPATHOLOGY REPORT ? [facility] ? [facility] Reports generated via Cloudstaff interface contain original data; ? however they are lacking the format of the original report. ? Caution should be taken when reading/interpreting unformatted reports. ? Name: ? HENNA COX ? Accession #: ? [id number] ? : ? 1965 (Age: 43) ??F ?Collect Date: ? 05/09/2008 ? Location: ? [facility] ? Receive Date: ? 05/10/2008 ? Provider: ?CECY M DO BBERTIN MD ? Copy to: ? Specimen/Source: ? Pap Test, Endocervix, ThinPrep Imaging System with ? manual evaluation ? Last Menstrual Period: ? 11/20/08 ? Hormonal/Contraceptive Statu s: ? Intrauterine device: Mirena ? Treatment History: ? Colposcopy: prior to 1997 ? Cryotherapy ? Other: ? HPVDX - HPV testing requeste d regardless of diagnosis on current ThinPrep Pap ?? test. ? SPECIMEN ADEQUACY ? Satisfactory for Eval uation ? - transformation zone compon ent present ? GENERAL CATEGORIZATION ? Negative for Intraepi thelial Lesion or Malignancy ? Document reviewed and electr onically signed by: ? Johnathon Shepard, CT( CP) ? Report Date: ??11/28/ 2008 13:05 ? End of Report ? Specimen Performing Organization Address City/State/[facility] Code Phon e Number [facility] [address] [place] [address] SERVICES [facility] [address] [place] [address] documented in this encounter Visit Diagnoses Not on filedocumented in this encounter
--- OUTSIDE RECORDS SUMMARY | 2022-01-02 01:12 | XMS_ITS | Encounter Summary ---
:1965 Author Organization [facility] Address [address] [place] [address] Care Team Providers Name Role Phone Lizett Espinosa MD Primary Care Provider Encounter Details Date Type Department Care Team Description 09/01/2018 Results Only [facility]- [facility] Cecy Rhodes MD [phone] [place] [address] (Wo rk) Social History Tobacco Use Types Packs/Day Years Used Date Never Assessed Sex Assigned at Date Recorded Not on file documented as of this encounter Plan of Treatment Not on filedocumented as of this encounter Procedures Procedure Name Priority Date/Time Associated Diagnosis Comme nts PAP TEST- RESULT Routine 09/01/2018 0:00 EDT Resu lts for this ONLY procedure are i n the results section. documented in this encounter Results PAP TEST- RESULT ONLY (09/01/2018 0:00 EDT) Pathology Report: CYTOPATHOLOGY REPORT [facility] Reports generated via electronic interface contain laurita ginal data; SERVICES however they are lacking the format of the original re port. Caution should be taken when reading/interpreting unfo rmatted reports. Name: ? HENNA COX ? Accession #: ? [id number] ? : ? 1965 (Age: [age]) ??F ?Collect Date: ? 09/01/2018 ? Location: ? [facility] ? Receive Date: ? 09/04/19 19 ? Provider: CECY RHODES MD Copy to: ? Final Report SPECIMEN ADEQUACY ? Satisfactory for Evaluation - transformation zone component present GENERAL CATEGORIZATION ? Negative for Intraepithelial Lesion or Malignan cy ?? Menstrual/ Status: ??Post Menopausal Hormonal/Contraceptive status: Yes: Vagimen 2x/ week Treatment History: Cone biopsy Cryotherapy: Years ago 20+ Specimen/Source: ??Pap Test, Cervix/Endocervix, ThinPr ep Imaging System with manual evaluation Document reviewed and electronically signed by: ? July Ventura, CT(ASCP)(IAC) ? Report ??Date: 09/07/2018 11:04 HPV with Pap Test ? Date Ordered: ? 09/07/2018 ? Status: ?? Signed Out ?Date Complete: ? 09/08/2018 ? By: ??Sy stem Interface ? Date Reported: ? 09/08/2018 ? Interpretation RESULT: Negative for HPV. No E6 or E7 mRNA is detected from HPV types 16,18,31,3 3,35, 39,45,51,52,56,58,59,66, and 68 by casing man media raphael amplification. Comments Document reviewed and electronically signed by: ? System Interface ? Report date: 09/08/2018 By the signature above, the attending physician certif ies that he/she has personally conducted a gross and/or microscopic examin ation of the described specimens and rendered or confirmed the above diagnosi s. End of Report Specimen Performing Organization Address City/State/ZIP Code Phon e Number [facility] [address] [place] [address] SERVICES documented in this encounter Visit Diagnoses Not on filedocumented in this encounter Care Teams Main Line Station Engineer Relationship Specialty Start Date End Date Lizett Espinosa MD PCP - General 07/10/11 [address] [place] [address] documented as of this encounter
--- OUTSIDE RECORDS SUMMARY | 2022-01-02 01:12 | XMS_ITS | Encounter Summary ---
:1965 Author Organization [facility] Address [address] [place] [address] Care Team Providers Name Role Phone Lizett Espinosa MD Primary Care Provider Encounter Details Date Type Department Care Team Description 04/30/2018 Hospital Encounter [facility]- [place] Unknown, Provider, [place] [address] [facility] [phone] [place] [address] (Work) [phone] Social History Tobacco Use Types Packs/Day Years Used Date Never Assessed Sex Assigned at Date Recorded Not on file documented as of this encounter Discharge Disposition Disposition Code Departure Means Destination Home or Self Fpc documented in this encounter Plan of Treatment Not on filedocumented as of this encounter Visit Diagnoses Not on filedocumented in this encounter Care Teams Route Inspector Relationship Specialty Start Date End Date Lizett Espinosa MD PCP - General 07/10/11 [address] [place], [place] [address] documented as of this encounter
--- OUTSIDE RECORDS SUMMARY | 2022-01-02 01:12 | XMS_ITS | Encounter Summary ---
:1965 Author Organization [facility] Address [address] [place] [address] Care Team Providers Name Role Phone Lizett Espinosa MD Primary Care Provider Encounter Details Date Type Department Care Team Description 07/03/2015 Results Only [facility]- [facility] Cecy Rhodes MD [phone] [place] [address] (Wo rk) Social History Tobacco Use Types Packs/Day Years Used Date Never Assessed Sex Assigned at Date Recorded Not on file documented as of this encounter Plan of Treatment Not on filedocumented as of this encounter Procedures Procedure Name Priority Date/Time Associated Diagnosis Comme nts PAP TEST- RESULT Routine 07/03/2015 0:00 EST Resu lts for this ONLY procedure are i n the results section. documented in this encounter Results PAP TEST- RESULT ONLY (07/03/2015 0:00 EST) Pathology Report: CYTOPATHOLOGY REPORT [facility] Reports generated via electronic interface contain laurita ginal data; SERVICES however they are lacking the format of the original re port. Caution should be taken when reading/interpreting unfo rmatted reports. Name: ? HENNA COX ? Accession #: ? [id number] ? : ? 1965 (Age: [age]) ??F ?Collect Date: ? 07/03/2015 ? Location: ? [facility] ? Receive Date: ? 07/04/19 16 ? Provider: CECY RHODES MD Copy to: ? Final Report SPECIMEN ADEQUACY ? Satisfactory for Evaluation - transformation zone component present GENERAL CATEGORIZATION ? Negative for Intraepithelial Lesion or Malignan cy ?? Last Menstrual Period: > 1 year Hormonal/Contraceptive status: Intrauterine device: Mi jack removing today Treatment History: Colposcopy: years ago Specimen/Source: ??Pap Test, Cervix/Endocervix, ThinPr ep Imaging System with manual evaluation Document reviewed and electronically signed by: ? LORENZA Chaudhari(ASCP) ? Report ??Date: 07/06/2015 09:50 HPV with Pap Test ? Date Ordered: ? 07/06/2015 ? Status: ?? Signed Out ?Date Complete: ? 07/07/2015 ? By: ??Sy stem Interface ? Date Reported: ? 07/07/2015 ? Interpretation RESULT: Negative for HPV. No E6 or E7 mRNA is detected from HPV types 16,18,31,3 3,35, 39,45,51,52,56,58,59,66, and 68 by offal roller media raphael amplification. Comments Document reviewed and electronically signed by: ? System Interface ? Report date: 07/07/2015 By the signature above, the attending physician certif ies that he/she has personally conducted a gross and/or microscopic examin ation of the described specimens and rendered or confirmed the above diagnosi s. End of Report Specimen Performing Organization Address City/State/ZIP Code Phon e Number [facility] [address] [place] [address] SERVICES documented in this encounter Visit Diagnoses Not on filedocumented in this encounter Care Teams President [employer] Relationship Specialty Start Date End Date Lizett Espinosa MD PCP - General 07/10/11 [address] [place], [place] [address] documented as of this encounter
--- OUTSIDE RECORDS SUMMARY | 2022-01-02 01:12 | XMS_ITS | Encounter Summary ---
:1965 Author Organization [facility] Address [address] [place] [address] Care Team Providers Name Role Phone Unavailable Primary Care Provider Unavailable Encounter Details Date Type Department Care Team Description 05/24/2003 Results Only [facility] - Tali David MD Maple conversion [address] [place] [address] [place] [address] Social History Tobacco Use Types Packs/Day Years Used Date Never Assessed Sex Assigned at Date Recorded Not on file documented as of this encounter Plan of Treatment Not on filedocumented as of this encounter Procedures Procedure Name Priority Date/Time Associated Diagnosis Comme nts CYTOPATHOLOGY Routine 05/24/2003 0:00 EST Results for this procedure are i n the results section . documented in this encounter Results CYTOPATHOLOGY (05/24/2003 0:00 EST) Pathology Report: CYTOPATHOLOGY REPORT [facility] Reports generated via electronic interface contain laurita ginal data; however they are lacking the format of the original re port. Caution should be taken when reading/interpreting unfo rmatted reports. Name: ? HENNA COX ? Accession #: ? [id number] : ? 1965 (Age: 38) ??F ?Collect Date: ? 02/2003 Location: ? [facility] ? Receive Date : ? 05/26/2003 Provider: ?JULIO DAVID MD Copy to: ? Specimen/Source: ?ThinPrep Pap Test, Cervix/ Endocervix Last Menstrual Period: ? 05/17/03 ? SPECIMEN ADEQUACY ? Satisfactory for Evaluation - transformation zone component present GENERAL CATEGORIZATION ? Other, see interpretation INTERPRETATION ? Endometrial cells present in a woman equal to o r greater than age 40. Negative for Intraepithelial Lesion or Malignancy. ? COMMENT ? Benign appearing endometrial cells on Pap tests are usually a normal finding in women with regular menstrual cycles, especially if the Pap was collected during the first half of the menstr ual cycle. ??There is data showing that endometrial cells on Pap tests may be associated wit h endometrial/uterine abnormalities in post menopausal women or in premenopausal women with abnormal bleeding. ??There is limited data on the significance of benign endometr ial cells in post menopausal women on HRT. ??Clinical correlation is rec ommended. Note: ?? The Pap test is not an accurate test for the screening of endometrial lesions and should not be used as a follow up in patie nts with clinical suspicion of endometrial pathology. ? Document reviewed and electronically signed by: ? LORENZA Simmons(ASCP) ? Report Date: ??05/30/2003 15:02 End of Report Specimen Performing Organization Address City/State/ZIP Code Phon e Number [facility] [address] [place] [address] SERVICES [facility] [address] [place] [address] documented in this encounter Visit Diagnoses Not on filedocumented in this encounter
--- OUTSIDE RECORDS SUMMARY | 2022-01-02 01:12 | XMS_ITS | Clinical Summary ---
:1965 Author Organization [facility] Address [address] [place] [address] Care Team Providers Name Role Phone Lizett Espinosa MD Primary Care Provider Social History Tobacco Use Types Packs/Day Years Used Date Never Assessed Sex Assigned at Date Recorded Not on file Plan of Treatment Not on file Care Teams Farmworker Dairy Relationship Specialty Start Date End Date Lizett Espinosa MD PCP - General 07/10/11 [address] [place], [place] [id number]
--- OUTSIDE RECORDS SUMMARY | 2022-01-02 01:12 | XMS_ITS | Encounter Summary ---
:1965 Author Organization [facility] Address [address] [place] [address] Care Team Providers Name Role Phone Unavailable Primary Care Provider Unavailable Encounter Details Date Type Department Care Team Description 01/30/2000 Results Only [facility] - Jacqui Rogers NP conversion [address] [place] [address] Social History Tobacco Use Types Packs/Day Years Used Date Never Assessed Sex Assigned at Date Recorded Not on file documented as of this encounter Plan of Treatment Not on filedocumented as of this encounter Procedures Procedure Name Priority Date/Time Associated Diagnosis Comme nts CYTOPATHOLOGY Routine 01/30/2000 0:00 EDT Results for this procedure are i n the results section . documented in this encounter Results CYTOPATHOLOGY (01/30/2000 0:00 EDT) Pathology Report: CYTOPATHOLOGY REPORT [facility] Reports generated via electronic interface contain laurita ginal data; however they are lacking the format of the original re port. Caution should be taken when reading/interpreting unfo rmatted reports. Name: ? HENNA COX ? Accession #: ? [id number] : ? 1965 (Age: 34) ??F ?Collect Date: ? 01/14 Location: ? [facility] ? Receive Date : ? 02/01/2000 Provider: ?JACQUI MONSON PLODDER OPERATOR Copy to: ? Specimen/Source: ?ThinPrep Pap Test, Cervix/ Endocervix Last Menstrual Period: ? 01/26/00 ? SPECIMEN ADEQUACY ? Satisfactory for evaluation. GENERAL CATEGORIZATION ? Within Normal Limits ? Document reviewed and electronically signed by: ? LORENZA Chaudhari(ASCP) ? Report Date: ??02/01/2000 14:10 End of Report Specimen Performing Organization Address City/State/ZIP Code Phon e Number [facility] [address] [place] [address] SERVICES [facility] [address] [place] [address] documented in this encounter Visit Diagnoses Not on filedocumented in this encounter
--- OUTSIDE RECORDS SUMMARY | 2022-01-02 01:12 | XMS_ITS | Encounter Summary ---
:1965 Author Organization [facility] Address [address] [place] [address] Care Team Providers Name Role Phone Lizett Espinosa MD Primary Care Provider Encounter Details Date Type Department Care Team Description 04/30/2018 Results Only [facility], [address] [place] [address] [place] [address] (Wo rk) Social History Tobacco Use Types Packs/Day Years Used Date Never Assessed Sex Assigned at Date Recorded Not on file documented as of this encounter Plan of Treatment Not on filedocumented as of this encounter Procedures Procedure Name Priority Date/Time Associated Diagnosis Comme [facility] SURGICAL PATHOLOGY Routine 04/30/2018 17:10 Resul ts for this EST procedure are i n the results section. documented in this encounter Results SURGICAL PATHOLOGY (04/30/2018 17:10 EST) Pathology Report: SURGICAL PATHOLOGY REPORT [facility] Reports generated via electronic interface contain laurita ginal data; LABORATORY however they are lacking the format of the original re port. SERVICES Caution should be taken when reading/interpreting unfo rmatted reports. Name: ? HENNA COX ? Accession #: ? [id number] ? : ? 1965 (Age: [age]) ??F ? Collect Date: ? 04/30/2018 ? Location: ? [facility] ? Receive Date: ? 018 ? Provider: DARIEN SCOTT MD Copy to: LARA AGUIAR MD ? Final Pathologic Diagnosis: GALLBLADDER, CHOLECYSTECTOMY: - ??Mild chronic cholecystis. Document reviewed and electronically signed by: AISHWARYA REYNOSO MD Report ??Date: 05/06/2018 15:08 By the signature above, the attending physician certif ies that he/she has personally conducted a gross and/or microscopic examin ation of the described specimens and rendered or confirmed the above diagnosi s. Specimen(s) Received: Gallbladder Clinical History: Biliary dyskinesia Gross Description: ? Received in formalin labelled with proper patient identification (initials W, J) and gallbladder is an intact gallbladder (6.2 x 2.6 x 0.5 cm). The cystic duct margin is inked blue. ? The serosa is bile-st ained green dull and wrinkled. The gallbladder mucosa is bile-stained green soft a nd velvety with an average wall thickness of 0.2 cm. The cystic duct lumen is patent and no gallstones are identified. The cystic duct margin, en face, and two floor representative sections are submitted in 1. JOSE JUAN Urias (ASCP) 05/01/2018 8:02 AM End of Report Specimen Performing Organization Address City/State/ZIP Code Phon e Number [facility] [address] [place] [address] SERVICES documented in this encounter Visit Diagnoses Not on filedocumented in this encounter Care Teams Slat Grader Relationship Specialty Start Date End Date Lizett Espinosa MD PCP - General 07/10/11 [address] [place], [place] [phone] documented as of this encounter
--- OUTSIDE RECORDS SUMMARY | 2022-01-02 01:12 | XMS_ITS | Encounter Summary ---
:1965 Author Organization [facility] Address [address] [place] [address] Care Team Providers Name Role Phone Unavailable Primary Care Provider Unavailable Encounter Details Date Type Department Care Team Description 04/30/2006 Results Only [facility] - Abhi Booker MD Maple conversion [address] [place] [address] [place], [place] [id number] [phone] Social History Tobacco Use Types Packs/Day Years Used Date Never Assessed Sex Assigned at Date Recorded Not on file documented as of this encounter Plan of Treatment Not on filedocumented as of this encounter Procedures Procedure Name Priority Date/Time Associated Diagnosis Comme nts SURGICAL PATHOLOGY Routine 04/30/2006 0:00 EST Re sults for this procedure are i n the results section. documented in this encounter Results SURGICAL PATHOLOGY (04/30/2006 0:00 EST) Pathology Report: SURGICAL PATHOLOGY REPORT [facility] Reports generated via electronic interface contain laurita ginal data; LAB however they are lacking the format of the original re port. Caution should be taken when reading/interpreting unfo rmatted reports. Name: ? HENNA COX ? Accession #: ? [id number] ? : ? 1965 (Age: 41) ??F ? Collect Date: ? 04/30/2006 ? Location: ? [facility] ? Receive Date: ? 006 ? Provider: ABHI BOOKER MD Copy to: DARLENE MANZANO ? Final Pathologic Diagnosis: ? Skin of forehead, left, excision: ? - Melanocytic nevus, intradermal type. Document reviewed and electronically signed by: Annabel Burr MD Report ??Date: 05/04/2006 14:10 By the signature above, the attending physician certif ies that he/she has personally conducted a gross and/or microscopic examin ation of the described specimens and rendered or confirmed the above diagnosi s. Specimen(s) Received: ? Forehead Clinical History: ? Long standing lesion; clinical diagnosis code: 238.2, 216.3 ?? Gross Description: ? Received in formalin labelled Kenn ead lesion is a nelson unoriented 0.8 x 0.4 cm skin ellipse excised to a depth of 0.3 cm. ??There is a nelson-white indurated 0.4 x 0.4 x 0.2 cm g ranular papule. The specimen is inked, serially sectioned, and is entirely subm itted as (A1) and (A2) with the distal tips submitted reverse en face as (A2). ??(Lalito RIVERA/[facility] End of Report Specimen Performing Organization Address City/State/ZIP Code Phon e Number [facility] [address] [place] [address] SERVICES [facility] [address] [place] [address] documented in this encounter Visit Diagnoses Not on filedocumented in this encounter
--- OUTSIDE RECORDS SUMMARY | 2022-01-02 01:12 | XMS_ITS | Encounter Summary ---
:1965 Author Organization [facility] Address [address] [place] [address] Care Team Providers Name Role Phone Unavailable Primary Care Provider Unavailable Encounter Details Date Type Department Care Team Description 01/26/2007 Results Only [facility] - Jacqui Rogers NP conversion [address] [place] [address] Social History Tobacco Use Types Packs/Day Years Used Date Never Assessed Sex Assigned at Date Recorded Not on file documented as of this encounter Plan of Treatment Not on filedocumented as of this encounter Procedures Procedure Name Priority Date/Time Associated Diagnosis Comme nts CYTOPATHOLOGY Routine 01/26/2007 0:00 EDT Results for this procedure are i n the results section . documented in this encounter Results CYTOPATHOLOGY (01/26/2007 0:00 EDT) Pathology Report: CYTOPATHOLOGY REPORT [facility] Reports generated via electronic interface contain laurita ginal data; however they are lacking the format of the original re port. Caution should be taken when reading/interpreting unfo rmatted reports. Name: ? HENNA COX ? Accession #: ? [id number] : ? 1965 (Age: 41) ??F ?Collect Date: ? 01/14 Location: ? [facility] ? Receive Date : ? 01/27/2007 Provider: ?JACQUI MONSON RETAIL SHIFT LEADER Copy to: ? Specimen/Source: ? ThinPrep Pap Test, Cervix/Endocervix, processed on [employer] ThinPrep Imaging System, with manual evaluation Last Menstrual Period: ? 01/18/07 Hormonal/Contraceptive Status: ? Intrauterine device: Mirena since 09/18 Other: ? HPVA - HPV testing requested if ASC-US on the current ThinPrep Pap test. ? SPECIMEN ADEQUACY ? Satisfactory for Evaluation - transformation zone component present GENERAL CATEGORIZATION ? Negative for Intraepithelial Lesion or Malignan cy ? Document reviewed and electronically signed by: ? LORENZA Simmons(ASCP) ? Report Date: ??01/30/2007 10:08 End of Report Specimen Performing Organization Address City/State/ZIP Code Phon e Number [facility] [address] [place] [address] SERVICES [facility] [address] [place] [address] documented in this encounter Visit Diagnoses Not on filedocumented in this encounter
--- OUTSIDE RECORDS SUMMARY | 2022-01-02 01:12 | XMS_ITS | Encounter Summary ---
:1965 Author Organization [facility] Address [address] [place] [address] Care Team Providers Name Role Phone Lizett Espinosa MD Primary Care Provider Encounter Details Date Type Department Care Team Description 07/09/2011 Results Only [facility] Araceli Rhodes MD Laboratory Services - [address] [place] [address] [address] [place] [address] [phone] (Wo rk) Social History Tobacco Use Types Packs/Day Years Used Date Never Assessed Sex Assigned at Date Recorded Not on file documented as of this encounter Plan of Treatment Not on filedocumented as of this encounter Procedures Procedure Name Priority Date/Time Associated Diagnosis Comme nts PAP TEST- RESULT Routine 07/09/2011 0:00 EST Resu lts for this ONLY procedure are i n the results section. documented in this encounter Results PAP TEST- RESULT ONLY (07/09/2011 0:00 EST) Pathology Report: CYTOPATHOLOGY REPORT [facility] Reports generated via electronic interface contain laurita ginal data; however they are lacking the format of the original re port. Caution should be taken when reading/interpreting unfo rmatted reports. Name: ? HENNA COX ? Accession #: ? [id number] ? : ? 1965 (Age: 46) ??F ?Collect Da te: ? 07/09/2011 ? Location: ? [facility] ? Receive Date: ? 012 ? Provider: LARA RHODES MD Copy to: ? Final Report SPECIMEN ADEQUACY ? Satisfactory for Evaluation - transformation zone component present GENERAL CATEGORIZATION ? Negative for Intraepithelial Lesion or Malignan cy ?? Last Menstural Period: 1 yr ago Hormonal/Contraceptive status: Yes: Mirena Treatment History: Cryotherapy: 1994 Specimen/Source: ??Pap Test, Endocervix, ThinPrep Imag ing System with manual evaluation Document reviewed and electronically signed by: ? Leroy Loo, LORENZA(ASCP) ? Report ??Date: 07/12/2011 12:44 HPV with Pap Test ? Date Ordered: ? 07/12/2011 ? Status: ?? Signed Out ?Date Complete: ? 07/16/2011 ? By: ??S ystem Interface ? Date Reported: ? 07/16/2011 ? Interpretation RESULT: Negative for HPV types 16, 18, 31, 33, 35, 39, 45, 51, 52, 56, 58, 59, and 68. Comments Document reviewed and electronically signed by: ? System Interface ? Report date: 07/16/2011 By the signature above, the attending physician certif ies that he/she has personally conducted a gross and/or microscopic examin ation of the described specimens and rendered or confirmed the above diagnosi s. End of Report Specimen Performing Organization Address City/State/ZIP Code Phon e Number [facility] [address] [place] [id number] SERVICES [facility] [address] [place] [address] documented in this encounter Visit Diagnoses Not on filedocumented in this encounter Care Teams Field Pipe Lines Supervisor Relationship Specialty Start Date End Date Lizett Espinosa MD PCP - General 07/10/11 [address] [place], [place] [address] documented as of this encounter
--- OUTSIDE RECORDS SUMMARY | 2022-01-02 01:12 | XMS_ITS | Encounter Summary ---
:1965 Author Organization [facility] Address [address] [place] [address] Care Team Providers Name Role Phone Lizett Espinosa MD Primary Care Provider Encounter Details Date Type Department Care Team Description 09/29/2018 Results Only [facility] Marilyn Garcia MD [phone] [address] (Wo rk) Social History Tobacco Use Types Packs/Day Years Used Date Never Assessed Sex Assigned at Date Recorded Not on file documented as of this encounter Plan of Treatment Not on filedocumented as of this encounter Procedures Procedure Name Priority Date/Time Associated Diagnosis Comme [facility] SURGICAL PATHOLOGY Routine 09/29/2018 15:54 Resul ts for this EDT procedure are i n the results section. documented in this encounter Results SURGICAL PATHOLOGY (09/29/2018 15:54 EDT) Pathology SURGICAL PATHOLOGY REPORT [facility] Report: Reports generated via electronic interface conta in original data; CENTER LABORATORY however they are lacking the format of the original re port. SERVICES Caution should be taken when reading/interpreting unfo rmatted reports. Name: ? HENNA COX ? Accession #: ? [id number] ? : ? 1965 (Age: [age]) ??F ? Collect Date: ? 09/29/2018 ? Location: ? [facility] ? Receive Date: ? 09/30/19 19 ? Provider: MARILYN GARRIDO MD Copy to: LARA AGUIAR MD ? Final Pathologic Diagnosis: A. ??SKIN OF SITE UNSPECIFIED, SHAVE BIOPSY: - Intradermal nevus. B. ??SKIN OF VULVA, PUNCH BIOPSY: - Chronic vulvitis. ??See microscopic and comment. Comment: The features seen in the pun ch biopsy from the vulva are nonspecific though are most consistent with a chron ic vulvitis. ??Well developed spongiosis is not seen. An interface pattern is not identified. ??Clinical correlation is recommended. [employer] slides of this case were reviewed at in tradepartmental consultation conference. ?? Microscopic Description: Sections of the vulva (part B) show mild acanthosis an d focal parakeratosis. Scattered lymphocytic exocyt osis is noted. ??Within the superficial dermis, there is mixed inflammation including lymphocytes as well as rare eosinophils surrounding superficial vessels. ?? Document reviewed and electronically signed by: HERMAN GARCIA MD Report ??Date: 09/30/2018 14:21 By the signature above, the attending physician certif ies that he/she has personally conducted a gross and/or microscopic examin ation of the described specimens and rendered or confirmed the above diagnosi s. Specimen(s) Received: A. ??Skin tag (#1) B. ??Vulva lesion 5.0 mm punch bx (#2) Clinical History: Tender papule R introitus, skin tag Gross Description: A. ?Received in formalin labelled with proper p atient identification (initials W, J) and skin tag is a sing le pink-nelson polypoid skin (0.5 x 0.4 x 0.3 cm). The margin is inked blue, the specimen is bis ected and entirely submitted in A1. B. ?Received in formalin labelled with proper p atient identification (initials W, J) and vulva lesion punch BX are three fragments of chase-white tissue (0.2 x 0.2 x 0.2 cm t o 0.5 x 0.3 x 0.3 cm). The specimen is submitted in toto in B1. JOSE JUAN Wheeler (ASCP) 09/29/2018 4:11 PM End of Report Specimen Performing Organization Address City/State/ZIP Code Phon e Number [facility] [address] [place] [address] SERVICES documented in this encounter Visit Diagnoses Not on filedocumented in this encounter Care Teams Church Administrator Relationship Specialty Start Date End Date Lizett Espinosa MD PCP - General 07/10/11 [address] [place] [address] documented as of this encounter
[2022-01-02 09:30] LABS: Source Nasal/Nares
[2022-01-02 14:28] LABS: COVID-19 PCR Negative (Negative)
== END 2022-01-02 01:09 | disposition home or self-care (01) ==
LOC: LBO 01:08
PROVIDERS: PCP Family Medicine; Visit Provider Student in an Organized Health Care Education/Training Program
DX: Z20.822 Contact with and (suspected) exposure to COVID-19 (principal); Z01.818 Encounter for other preprocedural examination
CPT/HCPCS: 87635

== ENCOUNTER 2022-01-04 06:13 | Day surgery (SDC) | payer OTHER, SELFPAY ==
--- NOTE | 2022-01-03 18:50 | W.ANESPRE ---
General Info Date of Service Date Performed: 01/04/22 Height: 5 ft 3 in Weight: 85.729 kg Body Mass Index (BMI): 33.5 Surgical Procedure: Operation Date: 01/04/22 07:40 Proposed Procedure Side Surgeon p Knee Arthroscopy w/any indicated Meniscal, Chondral and Synovial Surgery/Possible Root Repair Right Juvenal Diaz MD Meds Allergies and Home Medications Allergies Allergy/AdvReac Type Severity Reaction Status Date / Time latex AdvReac Mild Verified 01/03/22 09:11 Home Medication Medication Instructions Recorded calcium carbonate 600 mg-vitamin 1 ea PO DAILY 11/20/12 D3 20 mcg (800 unit) tablet (Caltrate with Vitamin D3) multivitamin 1 ea PO DAILY 11/20/12 omega-3 fatty acids-fish oil 684 1 cap PO DAILY 11/23/12 mg-1,200 mg capsule,delayed release (One-Per-Day [place]-3) naproxen sodium 220 mg capsule 220 mg PO PRN PRN 01/12/15 (Aleve) acetaminophen 650 mg 650 mg PO Q8H PRN fever or pain 04/30/18 tablet,extended release (Tylenol 8 #30 tabs Hour) ibuprofen 600 mg tablet 600 mg PO QID PRN fever or pain 04/30/18 #30 tabs calcipotriene-betamethasone 0.005 10 - 20 ml topical DAILY PRN #300 09/01/18 %-0.064 % topical suspension mL (Taclonex) bupropion HCl 150 mg 24 hr tablet, 150 mg PO QAM #90 tab-caps 01/16/21 extended release (Wellbutrin XL) citalopram 20 mg tablet (Celexa) 20 mg PO HS #90 tabs 01/16/21 estradiol 0.01% (0.1 mg/gram) 2 g vaginal DAILY #42.5 grams 01/16/21 vaginal cream estradiol 10 mcg vaginal tablet 10 mcg vaginal .3 times weekly #36 01/16/21 (Yuvafem) tabs garlic 300 mg capsule 300 mg PO DAILY 01/16/21 ketoconazole 2 % shampoo 1 applic topical Q2W #720 mL 02/15/21 triamcinolone acetonide 0.1 % 1 applic topical BID PRN rash #80 07/30/21 topical ointment grams Current Visit Medications: Current Medications Generic Name Dose Route Start Last Admin Trade Name Freq PRN Reason Stop Dose Admin Ringer's Solution 1,000 mls @ 30 mls/hr 01/04/22 06:00 IV 02/02/22 23:59 INFUSION ALFREDO Cefazolin Sodium 2,000 mg/ 100 mls @ 200 mls/hr 01/04/22 06:00 Sodium Chloride IVPB 01/04/22 18:00 PREOP ALFREDO IV Miscellaneous Supplies 1 each 01/04/22 06:00 Iv Access IV 02/02/22 23:59 DIRECTED ALFREDO Sodium Chloride 0 ml 01/04/22 06:00 Normal Saline Flush 10 Ml Syr IV 02/02/22 23:59 PRN PRN Sodium Chloride 0 ml 01/04/22 06:00 Normal Saline 10 Ml Vial IJ 02/02/22 23:59 DIRECTED PRN Sterile Water 0 ml 01/04/22 06:00 Water,Injection,Sterile 10 Ml Vial IJ 02/02/22 23:59 DIRECTED PRN PFSH Active Problems Active Problems: Problem Status Onset Code Acute medial meniscus tear of right knee ~08/2021 S83.241A 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 Actinic keratosis L57.0 Plantar fascia syndrome M72.2 Acute laryngopharyngitis J06.0 Heart murmur previously undiagnosed R01.1 History of cryosurgery Z98.890 Left lower quadrant pain 11/23/12 R10.32 Papanicolaou smear of vagina with low grade squamous intraepithelial lesion (LGSIL) R87.622 Sleep apnea 07/19/14 G47.30 Weight loss 01/01/16 R63.4 Vaginal sore N89.8 Bunion Biliary dyskinesia K82.8 S/P laparoscopic cholecystectomy ~04/30/18 Z90.49 Vaginal atrophy 09/08/14 N95.2 Snoring 03/03/14 R06.83 Seborrheic dermatitis L21.9 Depressive disorder F32.9 Annual physical exam 08/26/17 Z00.00 Medical History Medical History Biliary dyskinesia Depression Seborrheic dermatitis Surgical History Surgical History Cervical Procedure (~1989) CRYOTHERAPY Colonoscopy - MAC 05/30/14 Tobacco Smoking/Tobacco Use Status: Never Second hand exposure: No Alcohol Alcohol Intake: current Alcohol intake frequency: a few times a month Alcohol type: wine Substance Use Substance use: Never Substance use type: does not use Vital Signs and Lab Results Lab Results Blood Type / Crossmatch: No Data to Display Complete Blood Count: No Data to Display Complete Metabolic Panel: No Data to Display Liver Function Panel: No Data to Display Coagulation Panel: No Data to Display Cardiac Panel: No Data to Display Arterial Blood Gas: No Data to Display Venous Blood Gas: No Data to Display Pancreas Panel: No Data to Display Thyroid Panel: No Data to Display Infectious Disease: Coronavirus (COVID-19)(PCR) Negative (Negative) 01/02/22 08:46 Coronavirus 2019 Source Nasal/Nares 01/02/22 08:46 Blood Cultures: No Data to Display Toxicology Panel: No Data to Display Anesthesia Assessment and Plan Anesthesia History Personal History: No History of Anesthesia Complications Family History: No Family History of Anesthesia Complications Exercise Tolerance Exercise Tolerance: Metabolic Equivalents>4 Cardiac & Pulmonary Exam Cardiac Exam: Normal S1/S2 Heart Sounds Pulmonary Exam: Clear Bilateral Breath Sounds Implantable Cardiac Device Does patient have a Pacemaker or an ICD?: No Airway Exam Known Difficult Airway: No Mallampati Class: 3 Mouth Opening: Narrow (< 3cm) Thyromental Distance: Less than 3 cm Neck Range of Motion: Full ROM Neck Circumference: Normal Teeth Condition: Normal Dentition ASA Classification ASA Score: ASA 2 Emergency Case?: No NPO Status NPO Status: NPO Clears >2 hours, Solids >8 hours Anesthesia Plan Resuscitation Status: Full Code Anesthesia Technique: General Anesthesia Airway Planned: Endotracheal Tube Pain Management: Other (Discussed rescue vs prior to adductor. ) Monitors Used: Standard Monitors Preoperative Comments:: 56 yo female for knee scope. Sig PMHx: RODO, depression. Previous Anes: mckinley 2 grade 3, easy mask.
[2022-01-04] VITALS (12 sets, daily range): BP systolic 83–135; BP diastolic 50–81; PULSE 57–75; RESP 15–21; TEMP 36.4–36.7; O2SAT 93–100; BMI 33.5
[2022-01-04] MEDS: Lactated Ringers 1,000 ML 30 ML IV (07:15)
[2022-01-04] MEDS: ceFAZolin 2,000 MG in Normal Saline 100 ML 200 MG IVPB (07:29)
--- NOTE | 2022-01-04 08:00 | ROE_ITS ---
Operative Note Operative Note DATE OF PROCEDURE: 01/04/22 PRE-OP DIAGNOSIS: Right knee 1. Medial meniscus root tear 2. Synovitis 3. Chondromalacia POST-OP DIAGNOSIS: same PROCEDURE: Right knee 1. Medial meniscus root repair, CPT #43580 2. Abrasion arthroplasty, CPT #04475: Medial femoral condyle notchplasty for bone marrow stimulation SURGEON: Juvenal Diaz BARREL ENDSHAKE ADJUSTER: Janett Chen ANESTHESIA TYPE: Local By Surgeon and General LMA/ETT Refer to Anesthesia Record PATHOLOGY: none sent TOURNIQUET TIME: 0 Patient was transported to: PACU Patient's condition: stable Implants: Arthrex 3.5mm suture button Indications: Please see complete medical record for details. Findings: Exam under anesthesia: Full range of motion, no instability, reproducible medial compartment mechanical click Arthroscopic findings: Mild to moderate fairly diffuse undersurface patellar and medial femoral condyle chondromalacia. Intact ACL PCL. Intact lateral compartment and lateral meniscus. High?grade medial meniscus root tear involving radial tearing of the majority of the circumferential fibers. Procedure Description: In the operating room, genral anesthesia was induced. The patient was positioned supine on the operating room table. All bony prominences were well- padded. Preoperative antibiotics were administered. The knee was prepped and draped in the usual sterile fashion. The correct patient, procedure, and side of the procedure were all verified prior to incision. Exam under anesthesia was performed. 10 cc of bupivacaine and lidocaine mixture containing epinephrine was infiltrated about the planned anteromedial and anterolateral knee arthroscopy portals. The portals were established and a complete diagnostic arthroscopy was performed with relevant findings detailed above. The posterior horn of the medial meniscus was thoroughly inspected. There was no degenerative additional posterior horn tearing, no horizontal tear, and the medial compartment only fairly mild and localized moderate chondromalacia. Although the posterior horn of the meniscus did not probe into the compartment with instability as it was scarred posteriorly and had a peripheral remnant, the near?complete root tear disrupted essentially all the circumferential meniscus fibers and would have left the patient the compartment without a functioning meniscus for hoop stresses probably leading to extrusion and accelerated degenerative changes. The decision was made to proceed with root repair. The drill guide was placed at the appropriate location and a small pretibial incision made to accommodate the flip cutter drill, which was directed toward the posterior horn medial meniscus attachment. It was adjusted more posteriorly to best fit the meniscus tear position. The fiber stick was used to shuttle a passing stitch through the tibial tunnel. The knee scorpion was then used to pass mini suture tape FiberLink's securing the free edge. The sutures were shuttled through the tibia and securely tied over a suture button. The meniscus demonstrated excellent reduction and stability after repair. The overlying intercondylar medial femoral condyle was then abraded using the high-speed shaver to expose subchondral bleeding bone for bone marrow stimulation to augment the repair given isolated meniscus repair in middle-aged patient. Under direct arthroscopic visualization an 18-gauge needle was passed into the knee from superolateral into the suprapatellar pouch. The pretibial incision was infiltrated with 10 cc of bupivacaine and lidocaine mixture containing epinephrine. The knee was copiously irrigated with arthroscopic fluid until there was a clear effluent before being drained of all fluid. The pretibial incision, anteromedial and anterolateral portals were closed in 3-0 Monocryl in a buried interrupted fashion. 20 cc of ropivacaine and lidocaine mixture with epinephrine containing 4 mg of morphine was infiltrated into the knee through the previously placed needle. Mastisol, Steri-Strips, and 4 x 4 gauze were applied over the incisions followed by sterile soft roll. The knee was then wrapped gently with an LENA comressive bandage. The patient awoke from anesthesia without complication and was transferred to the recovery room in a stable condition.
[2022-01-04] MEDS: EPINEPHrine 30 MG/30 ML VIAL (08:58)
[2022-01-04] MEDS: Bupivacaine 0.25% Pres-Free 30 ML VIAL (09:24)
[2022-01-04] MEDS: Lidocaine 1.5 % Pres-Free W/EPI 1/200,000 30 ML VIAL (09:24)
[2022-01-04] MEDS: MORPHine 4 MG/ML SYR (09:24)
--- NOTE | 2022-01-04 09:25 | W.PM.DSUDISC ---
Discharge Plan Disposition Patient Disposition: HOME Condition: Stable Discharge Details Reason For Visit: Right knee surgery Attending Provider: Juvenal Diaz Primary Care Provider: Cecy Rhodes Home Meds and New Rx's Prescriptions: New aspirin 81 mg tablet,delayed release (DR/EC) 81 mg PO DAILY 14 Days Qty: 14 0RF naproxen 250 mg tablet 250 - 500 mg PO BID PRNQty: 40 0RF Rx Instructions: take with a meal oxycodone 5 mg tablet 5 - 10 mg PO Q4H MDD 30 mg PRN (Reason: moderate to severe pain) Qty: 18 0RF Continued triamcinolone acetonide 0.1 % ointment 1 applic Topical BID PRN (Reason: rash) Qty: 80 0RF garlic 300 mg capsule 300 mg PO DAILY bupropion HCl [Wellbutrin XL] 150 mg tablet extended release 24 hr 150 mg PO QAM Qty: 90 5RF citalopram [Celexa] 20 mg tablet 20 mg PO HS Qty: 90 5RF estradiol 0.01 % (0.1 mg/gram) cream 2 g VG DAILY Qty: 42.5 12RF Rx Instructions: alternate with estradial tablets vaginally estradiol [Yuvafem] 10 mcg tablet 10 mcg VG .3 times weekly Qty: 36 5RF multivitamin 1 EACH tablet 1 ea PO DAILY calcium carbonate-vitamin D3 [Caltrate with Vitamin D3] 1 EACH tablet 1 ea PO DAILY One-Per-Day [place]-3 1 EACH capsule,delayed release(DR/EC) 1 cap PO DAILY calcipotriene-betamethasone [Taclonex] 0.005-0.064 % suspension 10 - 20 ml Topical DAILY PRNQty: 300 Rx Instructions: DISPENSE 300ML X3 ketoconazole 2 % shampoo 1 applic TP Q2W Qty: 720 4RF acetaminophen [Tylenol 8 Hour] 650 mg tablet extended release 650 mg PO Q8H PRN (Reason: fever or pain) Qty: 30 0RF Discontinued naproxen sodium [Aleve] 220 MG capsule 220 mg PO PRN PRN ibuprofen 600 mg tablet 600 mg PO QID PRN (Reason: fever or pain) Qty: 30 0RF Discharge Instructions Additional Instructions: Surgery: Right knee arthroscopy with medial meniscus root repair and medial femoral condyle bone marrow stimulation Activity: Total 8 weeks crutches: Toe?touch weightbearing for 6 weeks followed by partial weightbearing for 2 weeks. No flexion past 90 degrees for 6 weeks. No weighted deep flexion for 8 weeks. Restore full knee extension as soon as possible. Encourage gentle range of motion. A physical therapy prescription will be sent electronically to start in 2 to 3 weeks. Prescriptions: Aspirin 81 mg take 1 daily to prevent a blood clot for 14 days Naproxen 250 mg take 1-2 every 12 hours with a meal as needed for moderate pain Oxycodone 5 mg take 1-2 every 4-6 hours as needed for severe pain You may use ukop-clo-dklwuuk Tylenol (acetaminophen) as needed for mild pain. These pain medications may be taken all at once or in different combinations as needed. Also, recommend Colace (docusate) as a stool softener as surgery and pain medicine cause constipation. You may try yhrx-eid-srsfkxq diphenhydramine (Benadryl) 25-50 mg nightly as a sleep aid Dressings: Leave dressing in place for 3 days. May then remove and leave open to air or cover incisions with Band-Aids. May shower after 5 days. Follow-up: 10-[address] Diaz Let us know right away if you develop any redness, drainage, fevers, chest pain, or trouble breathing. Do not drink alcohol or drive for at least 24 hours after anesthesia. Please call the office during business hours with any questions or concerns. Discharge Orders Discharge Orders: Discharge Order (Routine); Ordered 01/04/22 Ordered By: Juvenal Diaz DS: Diagnosis Discharge Diagnosis (1) Acute medial meniscus tear of right knee: Status: Acute (2) Chondromalacia of right knee: Status: Acute
[2022-01-04] MEDS: HYDROmorphone 2 MG/ML VIAL IVP ×2 (09:59→10:10)
[2022-01-04] MEDS: Normal Saline 20 ML VIAL (10:01)
--- NOTE | 2022-01-04 10:07 | W.ANESPOSTOP ---
Postoperative Evaluation Date, Time and Location Date Performed: 01/04/22 Time Performed: 10:07 Patient Location: Day Surgery Unit Vital Signs Most Recent Imported Vital Signs: Most Recent Vital Signs Temp Pulse Resp BP Pulse Ox 36.5 C 60 18 95/53 L 100 01/04/22 09:58 01/04/22 09:58 01/04/22 09:58 01/04/22 09:58 01/04/22 09:58 Pain Score Most Recent Pain Score: Most Recent Pain Score Pain Level 7 01/04/22 09:58 Assessment Mental Status: Awake (Alert & Oriented to Patient Baseline) Airway and Respiratory Function: Patent airway with normal (patient baseline) respiratory exam Cardiovascular Function: Hemodynamically Stable Hydration Status: Adequately Hydrated Nausea & Vomiting: No Nausea or Vomiting Pain: Pain is tolerable per patient Peripheral Nerve Block: Patient did not receive a nerve block
[2022-01-04] MEDS: oxyCODONE 5 MG TAB PO (11:51)
== END 2022-01-04 13:30 | disposition home or self-care (01) ==
PROVIDERS: PCP Family Medicine; Visit Provider Student in an Organized Health Care Education/Training Program
PROC: (CPT 29870; principal; 2022-01-04 07:30)
DX: S83.241A Other tear of medial meniscus, current injury, right knee, initial encounter (principal); M94.261 Chondromalacia, right knee; M65.861 Other synovitis and tenosynovitis, right lower leg
CPT/HCPCS: 29882; 29879; J0131; J0690; J1100; J1885; J2270; J2405; J2704; J3475

== ENCOUNTER 2022-08-08 00:26 | Outpatient (CLI) | payer BC, SELFPAY ==
--- NOTE | 2022-08-08 07:05 | DI.NM_ITS ---
APPROVED REPORT Exam: Exercise Treadmill Patient Location: Out-Patient Room/Bed: Stress Nurse: Nivia Jimenez RN Ordering Provider:CALLI LEBRON, Contact Number: [phone] BMI: 29.22 Baseline Rhythm: Sinus Bradycardia Indications: Chest pain Medical History Medical History: Heart murmur, hyperlipidemia, sleep apnea, depression Cardiac Medications: None Allergies: NKA Cardiac Risk Factors: Hyperlipidemia, family hx Previous Cardiac Procedures: None Pretest Chest Pain Characteristics: None Exercise History: Indeterminate Physical Disabilities: None Lung Sounds: Clear to auscultation Heart Sounds: Regular Stress Test Details Test: Exercise stress testing was performed using a Rudolph protocol. Nuclear Acquisition: Rest Tc-99m/Stress Tc-99m 1 day Rest Isotope: Tc-99m Sestamibi. Dose: 10.0 Date: 08/08/2022 Injection Time: 0900 Stress Isotope: Tc-99m Sestamibi. Dose: 31.0 Date: 08/08/2022 Injection Time: 1030 HR Resting HR Supine: 58 bpm Max Heart Rate (APMHR): 161.719100 bpm Resting HR Standin bpm Target HR (85% APMHR): 136.474694 bpm Max HR Achieved: 160 bpm % of APMHR: 99.38 Recovery HR: 84 bpm HR response to stress: Normal HR response to stress BP Resting BP Supine: 120/70 mmHg Resting BP Standin/74 mmHg Max BP: 174/52 mmHg Recovery BP: 132/68 mmHg BP response to stress: Normal blood pressure response to stress. ECG Resting ECG: Sinus Rhythm Ectopy: None Stress ECG: Sinus Tachycardia ST Change: No significant ST segment changes noted Stage: [address] Deviation: 1 mm Arrhythmia: Rare PACs Recovery ECG: Sinus Rhythm Recovery ST Change: Horizontal ST depression Lead(s): inferior, lateral Recovery ST Deviation: 1 mm Recovery Arrhythmia: None Comment: ST depressions resolved by minute 7 of recovery Clinical Reason for Termination: Fatigue Stress Symptoms: General Fatigue Exercise duration: 7 min46 sec Highest Stage Reached: Stage 3: 3.4 mph at 14% grade. Exercise capacity: 9.79 METs Angina Score: None Salazar Treadmill Score: 2.0 Rate Pressure Product: 57095 Stress ECG Conclusion 1. Resting electrocardiogram was within normal limits 2. Patient exercised on the Rudolph protocol and completed a workload of 9.79 METS limited by fatigue 3. Normal heart rate and blood pressure response to exercise. The patient achieved 99% of predicted heart rate for age 4. At peak exercise the electrocardiogram showed no evidence of myocardial ischemia. In recovery the re was [address] depression which gradually resolved after 7 minutes 5. There were no dysrhythmias 6. See MPI report Salazar Treadmill Score is 2.0 which is Moderate risk. Stress Test Summary STAGE Time (mins) Speed (mph) Grade (%) HR BP SpO2 SYMPTOMS METS Supine 58 120/70 Standing 66 114/74 98% 1 3 1.7 10 119 148/60 98% 4.5 2 6 2.5 12 145 156/60 98% 7 3 9 3.4 14 160 98% 10 1 min recovery 135 174/52 98% 3 min recovery 98 160/64 98% 6 min recovery 84 132/68 98% MPI Conclusion Normal myocardial perfusion without evidence of ischemia or prior infarction EF 56%, normal wall motion Radiologist Interpretation Radiologist Interpretation by: Johnathon Johnson MD Interpretation Date/Time: 08/08/2022 16:23:56
[2022-09-27] MEDS: Regadenoson 0.4 MG/5 ML SYR IVP (15:03)
== END 2022-08-08 00:46 ==
LOC: DI 00:27
PROVIDERS: PCP Family Medicine; Visit Provider Nurse Practitioner Family
DX: R07.9 Chest pain, unspecified (principal)
CPT/HCPCS: 78452; 93017; J2785

== ENCOUNTER 2022-08-16 01:25 | Outpatient (CLI) | payer BC, SELFPAY ==
[2022-08-16 12:21] LABS: HCT 40.1 % (36.0-46.0); HGB 12.9 g/dL (11.2-15.7); MCH 30.7 pg (27.0-33.0); MCHC 32.2 % (32.0-36.0); MCV 96 fL (80-95); MPV 9.1 fL (8.0-11.0); Platelet Count 376 10^3/uL (130-400); RDW 13.7 % (11.7-14.6); RDW-SD 48.3 fL; WBC 7.09 10^3/uL (4.4-10.8)
[2022-08-16 12:37] LABS: ALT 20 U/L (14-59); AST 12 U/L (15-37); Albumin 3.9 g/dL (3.4-5.0); Alkaline Phosphatase 66 U/L (46-116); Anion Gap 5.7 mmol/L (3-11); BUN 20 mg/dL (7-18); Bilirubin, Total 0.4 mg/dL (0.2-1.0); CO2 32.3 mmol/L (21.0-32.0); CREATININE 1.1 mg/dL (0.55-1.02); Calcium 9.2 mg/dL (8.5-10.1); Calculated LDL 175 mg/dL (<100); Chloride 107 mmol/L (98-107); Cholesterol 270 mg/dL (<200); Estimated GFR 57.88 (mL/min/1.73m2); Glucose 98 mg/dL (74-106); HDL Cholesterol 87 mg/dL (40-60); Potassium 4.3 mmol/L (3.5-5.1); Sodium 145 mmol/L (136-145); Total Protein 7.2 g/dL (6.4-8.2); Triglyceride 40 mg/dL (<150)
== END 2022-08-16 01:26 | disposition home or self-care (01) ==
LOC: LOS 01:25
PROVIDERS: PCP Family Medicine; Visit Provider Nurse Practitioner Family
DX: Z00.00 Encounter for general adult medical examination without abnormal findings (principal); F32.89 Other specified depressive episodes; R07.89 Other chest pain
CPT/HCPCS: 36415; 80053; 80061; 85027

== ENCOUNTER 2022-08-22 02:00 | Outpatient (CLI) | payer BC, SELFPAY ==
--- NOTE | 2022-08-22 07:45 | DI.MAMMO_ITS ---
Exam(s) MAMMO SCREENING EXAM: MAMMO SCREENING CLINICAL HISTORY: screening,z12.39 TECHNIQUE: Mammograms were interpreted according to the usual protocol including computer analysis w [employer] [facility] CAD system, tomosynthesis and C-view imaging. COMPARISON: 2014 through 2020 FINDINGS: The breasts are composed of heterogeneously dense fibroglandular densities, Breast Density category C . No suspicious masses or suspicious microcalcifications are seen. No skin thickening or abnormal axillary lymph nodes are seen. There has been no significant change from prior exams. IMPRESSION: BI-RADS Category 1, Negative mammogram. Yearly screening mammography is recommended. Breast Density Category C, heterogeneously Dense. The mammogram demonstrates the patient's breast tissue is dense. Dense breast tissue is very common a nd is not abnormal but dense breast tissue can make it harder to find cancer on a mammogram. Also, de nse breast tissue may increase breast cancer risk. This information about the result of the mammogram report was provided to the patient to raise their awareness. Use this report when you speak with the patient about their risks for breast cancer, which includes their family history. At that time, you may recommend additional screening tests (Ultrasound or MRI) as they might be useful based on their r isk. A negative radiographic report should not delay biopsy if a dominant or clinically suspicious mass is present. Up to ten percent of cancers are not identified on mammography. A negative report may reinforce clinical impression. Adenosis and dense breasts may obscure an underlying neoplasm. False positive reports average 6 to 10%.
== END 2022-08-22 02:20 ==
LOC: DI 02:00
PROVIDERS: PCP Family Medicine; Visit Provider Nurse Practitioner Family
DX: R92.2 Inconclusive mammogram (principal)
CPT/HCPCS: 77063; 77067

== ENCOUNTER 2023-11-03 10:36 | Outpatient (CLI) | payer BC, SELFPAY ==
[2023-11-03 12:53] LABS: Anion Gap 9.1 mmol/L (3-11); BUN 12 mg/dL (7-18); CO2 28.9 mmol/L (21.0-32.0); CREATININE 0.9 mg/dL (0.55-1.02); Calcium 9.3 mg/dL (8.5-10.1); Calculated LDL 114 mg/dL (<100); Chloride 102 mmol/L (98-107); Cholesterol 216 mg/dL (<200); Estimated GFR 73.19 (mL/min/1.73m2); Glucose 93 mg/dL (74-106); HDL Cholesterol 96 mg/dL (40-60); Sodium 140 mmol/L (136-145); Triglyceride 30 mg/dL (<150)
== END 2023-11-03 10:37 | disposition home or self-care (01) ==
PROVIDERS: PCP Nurse Practitioner Family; Referring Provider Nurse Practitioner Family; Visit Provider Nurse Practitioner Family
DX: Z00.00 Encounter for general adult medical examination without abnormal findings (principal)
CPT/HCPCS: 36415; 80048; 80061

== ENCOUNTER 2023-11-03 12:29 | Outpatient (REF) | payer BC, SELFPAY ==
--- NOTE | 2023-11-03 10:00 | PAPFT_PTH ---
PATIENT: Monse Salazar LOC: [facility] U#:[id number] AGE/SX: 58/F ROOM: RE11/03/[address]: MAHNAZ Kaiser : 1965 BED: DIS: 11/03/2023 SPEC #: [id number] RECD: 11/03/23 13:35 STATUS: MIR REMaty #: [id number] SUE: 11/03/23 10:[address]: Karen Godwin DEPT: [facility] Cytology RECD BY: Shala Del Castillo Tissues: 1 - CX/ENDOCX FOR PAP SMEARS Procedures: PAP THIN PREP/UVM Screening HPV DNA PROBE Comments: [id number]
== END 2023-11-03 12:30 | disposition home or self-care (01) ==
LOC: LBN 12:29
PROVIDERS: PCP Nurse Practitioner Family; Visit Provider Nurse Practitioner Family
DX: Z11.51 Encounter for screening for human papillomavirus (HPV) (principal); Z01.419 Encounter for gynecological examination (general) (routine) without abnormal findings
CPT/HCPCS: 88142; 87624

== ENCOUNTER → 2023-12-16 02:31 | Outpatient (CLI) | payer BC, SELFPAY ==
--- NOTE | 2023-12-16 06:30 | DI.MAMMO_ITS ---
Exam(s) MAMMO SCREENING EXAM: MAMMO SCREENING CLINICAL HISTORY: screening,z12.39. TECHNIQUE: Bilateral full field digital CC and MLO mammographic images were obtained with 3D tomosyn thesis and utilizing computer aided detection (CAD). COMPARISON: Prior mammograms were reviewed. FINDINGS: There has been no significant change in the appearance and distribution of the fibroglandular tissue. Benign-appearing lymph nodes are noted at 12 o'clock position of the right breast There are no new spiculated masses nor malignant appearing microcalcification groups. There is no significant architectural distortion nor skin thickening-retraction. IMPRESSION: No radiographic evidence of malignancy. Benign findings. BI-RADS Category 2 - Benign Findings Breast Density - Category C - Heterogeneously dense Breast density Category C or D implies that the patient has dense breast tissue. Dense breast tissue can make it harder to find cancer on a mammogram. Dense breast tissue is also associated with an incr eased risk of breast cancer. This information about the result of the mammogram report was provided to the patient to raise their awareness. Use this report when you speak with the patient about their risks for breast cancer, which includes their family history. At that time, you may recommend additional screening tests (Ultrasoun d or MRI) as these tests may add significant information. A negative radiographic report should not delay biopsy if a dominant or clinically suspicious mass is present. Up to ten percent of cancers are not identified on mammography. A negative report may reinforce clinical impression. Adenosis and dense breasts may obscure an underlying neoplasm. False positive reports average 6 to 10%. Patient will receive a letter notifying them of these results.
== END ==
PROVIDERS: PCP Nurse Practitioner Family; Visit Provider Nurse Practitioner Family
DX: Z12.39 Encounter for other screening for malignant neoplasm of breast (principal); R92.333 Mammographic heterogeneous density, bilateral breasts
CPT/HCPCS: 77063; 77067

== ENCOUNTER 2024-03-12 08:05 | Day surgery (SDC) | payer BC, SELFPAY ==
--- NOTE | 2024-03-11 19:11 | W.PM.DSUDISC ---
Date of service: 03/12/24 Time of Service: 11:13 Discharge Plan Disposition Patient Disposition: Home Condition: Good Discharge Details Reason For Visit: screening colonsocopy Attending Provider: Tomy Johnson Primary Care Provider: Karen Godwin Home Meds and New Rx's Prescriptions: Continued triamcinolone acetonide 0.1 % ointment 1 applic Topical BID PRN (Reason: rash) Qty: 80 0RF clobetasol 0.05 % solution 1 applic topical BID estradiol 0.01 % (0.1 mg/gram) cream 2 g VG .Twice a week Qty: 42.5 3RF Rx Instructions: alternate with estradial tablets vaginally estradiol [Yuvafem] 10 mcg tablet 10 mcg VG .Three times a week Qty: 30 3RF semaglutide (weight loss) 2.4 mg/0.75 mL pen injector 2.4 mg subcut QWEEK Qty: 9 3RF garlic 5,000 mcg tablet 5 mg PO DAILY multivitamin 1 EACH tablet 1 ea PO DAILY calcium carbonate-vitamin D3 [Caltrate with Vitamin D3] 1 EACH tablet 1 ea PO DAILY One-Per-Day [place]-3 1 EACH capsule,delayed release(DR/EC) 1 cap PO DAILY citalopram [Celexa] 20 mg tablet 20 mg PO HS Qty: 90 3RF bupropion HCl [Wellbutrin XL] 150 mg tablet extended release 24 hr 150 mg PO QAM Qty: 90 3RF acetaminophen [Tylenol 8 Hour] 650 mg tablet extended release 650 mg PO Q8H PRN (Reason: fever or pain) Qty: 30 0RF Discontinued bisacodyl [Dulcolax (bisacodyl)] 5 mg tablet,delayed release (DR/EC) 5 mg PO ONCE Qty: 4 0RF Rx Instructions: Take per colonoscopy instructions provided by ordering providers office polyethylene glycol 3350 17 gram/dose powder 17 g PO ONCE Qty: 238 0RF Rx Instructions: Take per colonoscopy instructions provided by ordering providers office Discharge Instructions Additional Instructions: Monse, it was really nice to meet you today, and I hope you are comfortable during the colonoscopy. Your prep was outstanding, and I could see everything just fine. There are no tumors, polyps, or really any other remarkable abnormalities. With a negative screening colonoscopy today, you are good for 10 years. Please do not hesitate to call if you have any questions at all. 1. If tolerated, consume a soft, low fiber diet for 1-2 days. 2. Do not drive, drink alcohol, operate machinery, make critical decisions, or do activities that require coordination or balance for 24 hours. 3. Because air was put into your colon during the procedure, expelling air from your rectum (passing gas or farting) is normal. 4. You may not have a bowel movement for 1-3 days because of the colonoscopy prep. This is normal. 5. Go directly to the emergency room if you notice any of the following: Develop chills (warm to touch), or if you have a thermometer and your temperature is above 101 Difficulty breathing or difficultly swallowing Persistent vomiting Severe abdominal pain, other than gas cramps Severe chest pain Black, tarry stools Any bleeding ? exceeding one tablespoon 6. Call your physician if the site where your intravenous was started becomes red, swollen, painful, and warm to touch. 7. Your physician has reviewed your pre-procedure medications. Please continue to take those medications as previously ordered. You will be given specific information/education regarding any changes to your medications before leaving. Activity:: Activity as Tolerated Diet:: As Tolerated Discharge Orders Discharge Orders: Discharge Order (Routine); Ordered 03/11/24 Ordered By: Tomy Johnson DS: Diagnosis Discharge Diagnosis (1) Encounter for screening colonoscopy: Status: Acute Asessment and Plan: Negative screening colonoscopy
--- NOTE | 2024-03-11 19:13 | W.COLOREPORT ---
Date of service: 03/12/24 Time of Service: 11:15 Colonoscopy Report Date of procedure: 03/12/24 Pre-op diagnosis general: screening colonoscopy Post-op diagnosis procedure note: other (Negative screening colonoscopy) Procedure: colonoscopy Surgeon: Tomy Johnson Anesthesia Type: General:No Airway Estimated blood loss (mL): 0 Pathology: none sent Complications: None Disposition: same day Indications: Monse is a 59 year old woman who needs her next screening colonsocopy Prep: Miralax/Dulcolax Procedure Start Time: 10:44 Procedure End Time: 11:00 Retraction Time: 6 Findings: Negative screening colonoscopy Procedure Description: After the induction of anesthesia, and with the patient in left lateral decubitus position, I began by performing an external anorectal exam.? Perineum and skin were normal, as was the anal verge.? There was no evidence of external hemorrhoids.? Next, I performed a digital rectal exam.? I did not appreciate any abnormal findings.? Next, I advanced a colonoscope into the rectal vault.? I performed retroflexion.? This was normal.? Using insufflation, I then advanced the colonoscope beyond the rectal folds and into the sigmoid colon before advancing towards the cecum.? The quality of the prep was outstanding.? The scope was noted to be in the cecum by identification of the ileocecal valve and appendiceal orifice.? I then began withdrawing the colonoscope using repeated irrigation as necessary for full evaluation of the colonic mucosa. ?Once the scope was withdrawn to the level of the rectum, great care was taken to examine portions of the rectal folds.? I did not see any signs of tumors, polyps, or any other abnormalities. Finally, the scope was withdrawn and the patient was brought to the same-day surgery recovery unit as the anesthetic wore off. ?The findings and instructions were shared with the patient prior to discharge. [place] Bowel Prep [place] Bowel Prep Right Colon: 3 Left Colon: 3 Transverse Colon: 3 Total Score: 9
[2024-03-12 08:40] VITALS: BP 115/81; PULSE 77; RESP 16; TEMP 36.7; O2SAT 99
[2024-03-12] MEDS: Lactated Ringers 1,000 ML 80 ML IV (09:15)
--- NOTE | 2024-03-12 09:41 | W.ANESPRE ---
General Info Date of Service Date Performed: 03/12/24 Height: 5 ft 3 in Weight: 59.421 kg Body Mass Index (BMI): 23.2 Surgical Procedure: Operation Date: 03/12/24 10:05 Proposed Procedure Side Surgeon dickson Johnson MD Meds Allergies and Home Medications Allergies Allergy/AdvReac Type Severity Reaction Status Date / Time latex AdvReac Mild rash Verified 03/12/24 08:42 Home Medication ?Medication ?Instructions ?Recorded calcium carbonate 600 mg-vitamin 1 ea PO DAILY 11/20/12 D3 20 mcg (800 unit) tablet (Caltrate with Vitamin D3) multivitamin 1 ea PO DAILY 11/20/12 omega-3 fatty acids-fish oil 684 1 cap PO DAILY 11/23/12 mg-1,200 mg capsule,delayed release (One-Per-Day [place]-3) acetaminophen 650 mg 650 mg PO Q8H PRN fever or pain 04/30/18 tablet,extended release (Tylenol 8 #30 tabs Hour) triamcinolone acetonide 0.1 % 1 applic topical BID PRN rash #80 07/30/21 topical ointment grams garlic 5,000 mcg tablet 5 mg PO DAILY 02/21/23 citalopram 20 mg tablet (Celexa) 20 mg PO HS #90 tabs 03/18/23 clobetasol 0.05 % scalp solution 1 applic topical BID 06/11/23 estradiol 0.01% (0.1 mg/gram) 2 g vaginal .Twice a week #42.5 06/11/23 vaginal cream grams estradiol 10 mcg vaginal tablet 10 mcg vaginal .Three times a week 06/11/23 (Yuvafem) #30 tabs semaglutide (weight loss) 2.4 2.4 mg (0.75 mL) subcut QWEEK #9 mL 08/25/23 mg/0.75 mL subcutaneous pen injector bupropion HCl 150 mg 24 hr tablet, 150 mg PO QAM #90 tabs 02/05/24 extended release (Wellbutrin XL) Current Visit Medications: Current Medications Generic Name Dose Route Start Last Admin Trade Name Freq PRN Reason Stop Dose Admin Hyoscyamine Sulfate 0.125 mg 03/11/24 19:14 Hyoscyamine 0.125 Mg Sl/Oral/Chew SL 04/10/24 19:13 DIRECTED PRN Ringer's Solution 1,000 mls @ 80 mls/hr 03/12/24 06:00 03/12/24 09:15 IV 03/12/24 23:59 80 mls/hr INFUSION ALFREDO Administration IV Miscellaneous Supplies 1 each 03/12/24 06:00 Iv Access IV 03/12/24 23:59 DIRECTED ALFREDO Sodium Chloride 0 ml 03/12/24 06:00 Normal Saline Flush 10 Ml Syr IV 03/12/24 23:59 PRN PRN Sodium Chloride 0 ml 03/12/24 06:00 Normal Saline 10 Ml Vial IJ 03/12/24 23:59 DIRECTED PRN Sterile Water 0 ml 03/12/24 06:00 Water,Injection,Sterile 10 Ml Vial IJ 03/12/24 23:59 DIRECTED PRN PFSH Active Problems Active Problems: Problem Status Onset Code Encounter for screening colonoscopy Acute Z12.11 RODO (obstructive sleep apnea) Chronic G47.33 Major depressive disorder, recurrent Chronic F33.9 Hyperlipidemia Chronic E78.5 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 History of basal cell carcinoma (BCC) Chronic Z85.828 Obesity Chronic E66.9 Surgical History Surgical History S/P Mohs surgery for basal cell carcinoma S/P excision of lipoma S/P colonoscopy S/P LEEP of cervix S/P medial meniscus repair of right knee (01/04/22) S/P laparoscopic cholecystectomy (04/30/18) History of tonsillectomy Tobacco Smoking/Tobacco Use Status: Never Passive smoking exposure: No Second hand exposure: No Alcohol Alcohol Intake: current Alcohol intake frequency: a few times a month Alcohol type: beer and wine Substance Use Substance use: Never Substance use type: does not use Details: alcohol: t-6 Vital Signs and Lab Results Vital Signs Most Recent Vital Signs in EMR: Most Recent Vital Signs Temp Pulse Resp BP Pulse Ox 36.7 C 77 16 115/81 99 03/12/24 08:40 03/12/24 08:40 03/12/24 08:40 03/12/24 08:40 03/12/24 08:40 Lab Results Blood Type / Crossmatch: No Data to Display Complete Blood Count: No Data to Display Complete Metabolic Panel: No Data to Display Liver Function Panel: No Data to Display Coagulation Panel: No Data to Display Cardiac Panel: No Data to Display Arterial Blood Gas: No Data to Display Venous Blood Gas: No Data to Display Pancreas Panel: No Data to Display Thyroid Panel: No Data to Display Infectious Disease: No Data to Display Blood Cultures: No Data to Display Toxicology Panel: No Data to Display Imaging and Studies Imaging and Studies Study information below may be from another EMR and interpreted by another provider. Please see original notes in EMR for more complete details. Stress Test Summary: 08/08/22 Stress ECG Conclusion 1. Resting electrocardiogram was within normal limits 2. Patient exercised on the Rudolph protocol and completed a workload of 9.79 METS limited by fatigue 3. Normal heart rate and blood pressure response to exercise. The patient achieved 99% of predicted heart rate for age 4. At peak exercise the electrocardiogram showed no evidence of myocardial ischemia. In recovery there was [address] depression which gradually resolved after 7 minutes 5. There were no dysrhythmias 6. See MPI report Salazar Treadmill Score is 2.0 which is Moderate risk. Anesthesia Assessment and Plan Anesthesia History Personal History: No History of Anesthesia Complications Family History: No Family History of Anesthesia Complications Exercise Tolerance Exercise Tolerance: Metabolic Equivalents>4 Pertinent Negatives Pertinent Negatives: No Symptoms of GERD, No Major Cardiovascular Symptoms or Complaints, No Major Pulmonary Symptoms or Complaints and No History of CVA/TIA Cardiac & Pulmonary Exam Cardiac Exam: Normal S1/S2 Heart Sounds Pulmonary Exam: Clear Bilateral Breath Sounds Implantable Cardiac Device Does patient have a Pacemaker or an ICD?: No Airway Exam Known Difficult Airway: No Mallampati Class: 3 Mouth Opening: Narrow (< 3cm) Thyromental Distance: Less than 3 cm Neck Range of Motion: Full ROM Neck Circumference: Normal Teeth Condition: Normal Dentition ASA Classification ASA Score: ASA 2 Emergency Case?: No NPO Status NPO Status: NPO Clears >2 hours, Solids >8 hours Anesthesia Plan Resuscitation Status: Full Code Anesthesia Technique: General Anesthesia Airway Planned: Natural Airway Monitors Used: Standard Monitors
[2024-03-12 10:34] VITALS: BMI 23.2
[2024-03-12 11:07] VITALS: BP 105/67; PULSE 78; RESP 16; TEMP 36.1; O2SAT 98
[2024-03-12 11:30] VITALS: BP 102/73; PULSE 82; RESP 16; TEMP 36.2; O2SAT 100
--- NOTE | 2024-03-12 12:15 | W.ANESPOSTOP ---
Postoperative Evaluation Date, Time and Location Date Performed: 03/12/24 Time Performed: 11:07 Patient Location: Day Surgery Unit Vital Signs Most Recent Imported Vital Signs: Most Recent Vital Signs Temp Pulse Resp BP Pulse Ox 36.2 C L 82 16 102/73 100 03/12/24 11:30 03/12/24 11:30 03/12/24 11:30 03/12/24 11:30 03/12/24 11:30 Pain Score Most Recent Pain Score: Most Recent Pain Score Pain Level 0 03/12/24 11:30 Assessment Mental Status: Awake (Alert & Oriented to Patient Baseline) Airway and Respiratory Function: Patent airway with normal (patient baseline) respiratory exam Cardiovascular Function: Hemodynamically Stable Hydration Status: Adequately Hydrated Nausea & Vomiting: No Nausea or Vomiting Pain: Pt. Denies Any Pain Peripheral Nerve Block: Patient did not receive a nerve block
== END 2024-03-12 11:40 | disposition home or self-care (01) ==
LOC: SUR 08:06
PROVIDERS: PCP Nurse Practitioner Family; Visit Provider Surgery
PROC: 0DJD8ZZ Inspection of Lower Intestinal Tract, Via Natural or Artificial Opening Endoscopic (ICD-10-PCS; CPT 45378; principal; 2024-03-12 10:00)
DX: Z12.11 Encounter for screening for malignant neoplasm of colon (principal)
CPT/HCPCS: 45378; J2405; J2704

== ENCOUNTER 2024-12-31 00:16 | Outpatient (CLI) | payer BC, SELFPAY ==
--- NOTE | 2024-12-31 07:50 | DI.MAMMO_ITS ---
Exam(s) MAMMO SCREENING EXAM: MAMMO SCREENING CLINICAL HISTORY: screening,z12.39. TECHNIQUE: Bilateral full field digital CC and MLO mammographic images were obtained with 3D tomosynthesis and utilizing computer aided detection (CAD). COMPARISON: Prior mammograms were reviewed. FINDINGS: There has been no significant change in the appearance and distribution of the fibroglandular tissue. There are no new spiculated masses nor malignant appearing microcalcification groups. There is no significant architectural distortion nor skin thickening-retraction. IMPRESSION: No radiographic evidence of malignancy. BI-RADS Category 1 - Negative Breast Density - Category C - The breast are heterogeneously dense, which may obscure small masses. Breast density Category C or D implies that the patient has dense breast tissue. Dense breast tissue can make it harder to find cancer on a mammogram. Dense breast tissue is also associated with an increased risk of breast cancer. This information about the result of the mammogram report was provided to the patient to raise their awareness. Use this report when you speak with the patient about their risks for breast cancer, which includes their family history. At that time, you may recommend additional screening tests (Ultrasound or MRI) as these tests may add significant information. A negative radiographic report should not delay biopsy if a dominant or clinically suspicious mass is present. Up to ten percent of cancers are not identified on mammography. A negative report may reinforce clinical impression. Adenosis and dense breasts may obscure an underlying neoplasm. False positive reports average 6 to 10%. Patient will receive a letter notifying them of these results.
== END 2024-12-31 00:36 ==
LOC: DI 00:17
PROVIDERS: PCP Nurse Practitioner Family; Visit Provider Nurse Practitioner Family
DX: Z12.31 Encounter for screening mammogram for malignant neoplasm of breast (principal); R92.333 Mammographic heterogeneous density, bilateral breasts
CPT/HCPCS: 77063; 77067